=== PATIENT | male | born 1945 | race Caucasian/White ===

== ENCOUNTER 2016-11-06 12:08 | Emergency (ER) | payer MEDICARE, OTHER ==
[~2016-11-06] VITALS: Ht 171.4 cm; Wt 65.5 kg
[~2016-11-06 12:08] MED LIST: AMLO5TAB96 PO; BUSP10; ENAL20TA PO; FERR324T4 PO; GLIP10 PO; METO25 PO; TERA5CAP3 PO
[2016-11-06 12:30] VITALS: BP 143/82; PULSE 98; RESP 16; TEMP 98.8; O2SAT 98
[2016-11-06] MEDS ORDERED: FERR325T PO (13:50)
[2016-11-06] MEDS ORDERED: GLIP10TA6 PO (13:50)
[2016-11-06] MEDS ORDERED: ENAL20TA PO (13:50)
[2016-11-06] MEDS ORDERED: TERA5CAP3 PO (13:50)
[2016-11-06] MEDS ORDERED: METO25TA3 PO (13:50)
[2016-11-06] MEDS ORDERED: AMLO10 PO (13:50)
[2016-11-06] MEDS ORDERED: BUSP10TA PO (13:50)
[2016-11-06] MEDS ORDERED: HYDR-3533 PO ×2 (14:23→14:29)
[2016-11-06] MEDS ORDERED: CLIN1CAP6 PO (14:23)
--- NOTE | 2016-11-06 14:29 | PD ---
HPI Chief Complaint: Oral / Dental Pain or Problem Time Seen by Provider: 14:26 Travel History International Travel<30 days: No Contact w/Intl Traveler<30days: No Traveled to known affect area: No History of Present Illness HPI 71-year-old male presents to the emergency room for evaluation of right upper dental pain and swelling for the past week. States he has had problems with his right upper teeth ever since he broke off 2 of them biting into a pork chop. Patient states symptoms started at the same time. Began draining spontaneously, leaving a nasty taste in his mouth. He has been taking ibuprofen [id number] without significant relief in symptoms. He denies fever, chills, nausea, and vomiting. PFSH Past Medical History Arthritis: Yes Autoimmune Disease: No Blood Disorders: No Anxiety: Yes Depression: Yes Heart Rhythm Problems: No Cancer: No Cardiovascular Problems: Yes High Cholesterol: Yes Chemotherapy: No Chest Pain: No Congestive Heart Failure: No Cerebrovascular Accident: No Diabetes: Yes Patient Takes Glucophage: No Diminished Hearing: No Endocrine: Yes Gastrointestinal Disorders: Yes GERD: Yes Glaucoma: No Genitourinary: Yes Hepatitis: Yes (C) Hiatal Hernia: No Hypertension: Yes Immune Disorder: No Kidney Stones: Yes Musculoskeletal: Yes Neurologic: Yes Psychiatric: Yes Reproductive: No Respiratory: No Immunizations Current: Yes Migraines: No Radiation Therapy: No Renal Failure: No Seizures: No Thyroid Disease: No Ulcer: No Influenza Vaccination: No ?: Not Past Surgical History Abdominal Surgery: Yes Cardiac Surgery: No Ear Surgery: No Endocrine Surgery: No Eye Surgery: No Genitourinary Surgery: No Gynecologic Surgery: No Oral Surgery: No Pacemaker: No Thoracic Surgery: No Other Surgery: Yes Social History Alcohol Use: Yes (WINE DAILY) Tobacco Use: No (QUIT 10/26) Substance Use: No Allergies-Medications (Allergen,Severity, Reaction): Coded Allergies: Benadryl (Verified Allergy, Intermediate, Rash, 11/06/16) Hydroxyzine (Verified Allergy, Intermediate, Rash, 11/06/16) Reported Meds & Prescriptions Reported Meds & Active Scripts Active Lortab (Hydrocodone-Acetaminophen) 5-325 Mg Tab 1 Tab PO Q6H PRN Clindamycin (Clindamycin HCl) 300 Mg Cap 300 Mg PO Q6H 10 Days Reported Ferrous Sulfate 325 Mg Tab 325 Mg PO BID Buspirone (Buspirone HCl) 10 Mg Tab 10 Mg PO BID Metoprolol Tartrate 25 Mg Tab 25 Mg PO BID Terazosin (Terazosin HCl) 5 Mg Cap 5 Mg PO HS Glipizide 10 Mg Tab 10 Mg PO BIDAC Take 30 minutes before a meal Enalapril (Enalapril Maleate) 20 Mg Tab 20 Mg PO BID Norvasc (Amlodipine Besylate) 10 Mg Tab 10 Mg PO HS Review of Systems Except as stated in HPI: all other systems reviewed are Neg Physical Exam Narrative GENERAL: Well-nourished, well-developed male in no acute distress. Afebrile. Ambulatory. SKIN: Warm and dry. HEAD: Normocephalic. EYES: No scleral icterus. No injection or drainage. NECK: Supple, trachea midline. No JVD or lymphadenopathy. DENTAL: Poor dentition overall. Tooth #6 and 7 are erythematous at the base with obvious abscess draining large amounts of purulent, foul-smelling discharge. No malocclusion. Data Data Last Documented VS Vital Signs Date Time Temp Pulse Resp B/P Pulse Ox O2 Delivery O2 Flow Rate FiO2 11/06/16 15:08 18 11/06/16 12:30 98.8 98 143/82 98 Orders Clindamycin Inj (Cleocin Inj) (11/06/16 14:30) Acetamin-Hydrocod 325-5 Mg ([place] 5-325 (11/06/16 14:30) MDM Medical Decision Making Medical Screen Exam Complete: Yes Emergency Medical Condition: Yes Medical Record Reviewed: Yes Differential Diagnosis Dental abscess versus dentalgia versus dental caries Narrative Course 71 male presents to the emergency room for evaluation of draining dental abscess with right facial edema that has been present for the past week. Patient denies fever, chills, nausea, and vomiting. States he has had issues with these teeth for many years after he broke them off eating a pork chop. Physical exam reveals mild erythema and large amount of purulent, foul-smelling drainage from tooth #6 and 7. There is mild right-sided facial edema but no evidence of Emeka's. Patient given 600 IM clindamycin and Lortab while in the emergency room. Discharged with prescriptions for the same. Told to follow-up with dentist or return for worsening symptoms. He understands and agrees to this plan Diagnosis Primary Impression: Dental abscess Referrals: Dentist Patient Instructions: Dental Abscess (ED), General Instructions Additional Instructions: Rest and drink plenty of fluids. Clindamycin as directed, until gone. Lortab as directed, as needed for pain. Follow-up with a dentist. Return to the emergency room for worsening symptoms. Med/Other Pt SpecificInfo: Prescription(s) given Scripts Hydrocodone-Acetaminophen (Lortab)5-325 Mg Tab1 Tab PO Q6H PRN (PAIN) #7 TAB Ref 0 Prov:Ary Lee MD 11/06/16 Clindamycin 300 Mg [id number] Mg PO Q6H 10 Days Ref 0 Prov:Ary Lee MD 11/06/16 Disposition: 01 DISCHARGE HOME Condition: Stable Liliane Dodson Nov 06, 2016 14:29
[2016-11-06] MEDS ORDERED: ACETAMINOPHEN/HYDROcodone 325 MG/5 MG TAB PO ONE (14:30)
[2016-11-06] MEDS ORDERED: CLINDAMYCIN PHOS 600 MG/4 ML VIAL IM ONE (14:30)
[2016-11-06 15:08] VITALS: RESP 18
== END 2016-11-06 15:10 | disposition home or self-care (01) ==
LOC: PHED 12:08 → PHEFT 15:10
DX: K04.7 Periapical abscess without sinus (principal); E78.00 Pure hypercholesterolemia, unspecified; E11.9 Type 2 diabetes mellitus without complications; I10 Essential (primary) hypertension; Z87.442 Personal history of urinary calculi
CPT/HCPCS: 96372

== ENCOUNTER → 2016-11-15 | Outpatient (CLI) | payer MEDICARE, OTHER ==
[~2016-11-15] MED LIST changes: +AMLO10 PO; -AMLO5TAB96 PO; -BUSP10; +BUSP10TA PO; +CLIN1CAP6 PO; -FERR324T4 PO; +FERR325T PO; -GLIP10 PO; +GLIP10TA6 PO; +HYDR-3533 PO; -METO25 PO; +METO25TA3 PO
[2016-11-15 15:53] LABS: AUTOMATED NEUTROPHIL # 3.7 TH/MM3 (1.8-7.7); BASOPHIL # 0.1 TH/MM3 (0-0.2); BASOPHIL % 1.3 % (0.0-2.0); EOSINOPHIL # 0.3 TH/MM3 (0-0.4); EOSINOPHIL % 3.7 % (0.0-4.0); HEMATOCRIT 42.8 % (39.0-51.0); HEMO FLAGS DIFF FINAL; LYMPH % 32.1 % (9.0-44.0); LYMPHOCYTE # 2.4 TH/MM3 (1.0-4.8); MEAN CELL VOLUME 96.4 FL (80.0-100.0); MEAN CORPUSCULAR HEMOGLOBIN 32.9 PG (27.0-34.0); MEAN CORPUSCULAR HGB CONC 34.1 % (32.0-36.0); MONO % 13.4 % (0.0-8.0); NEUT % 49.5 % (16.0-70.0); PLATELET COUNT 305 TH/MM3 (150-450); RED BLOOD COUNT 4.44 MIL/MM3 (4.50-5.90); RED CELL DISTRIBUTION WIDTH 12.6 % (11.6-17.2); WHITE BLOOD COUNT 7.4 TH/MM3 (4.0-11.0)
[2016-11-15 16:12] LABS: HEMOGLOBIN A1a 1.5 %; HEMOGLOBIN Ao 82.7 %; HEMOGLOBIN LA1C 2.5 %; HEMOGLOBIN P3 4.1 %
[2016-11-15 16:22] LABS: ANION GAP 4 MEQ/L (5-15); AST (GOT) 23 U/L (15-37); BICARBONATE 28.9 MEQ/L (21.0-32.0); BLOOD UREA NITROGEN 11 MG/DL (7-18); CHLORIDE 104 MEQ/L (98-107); GLOMERULAR FILTRATION RATE 70 ML/MIN (>89); GLUCOSE,FASTING 141 MG/DL (74-99); POTASSIUM 5.6 MEQ/L (3.5-5.1); SODIUM (NA) 137 MEQ/L (136-145)
[2016-11-15 16:27] LABS: ALKALINE PHOSPHATASE 47 U/L (45-117); ALT (GPT) 53 U/L (12-78); HDL CHOLESTEROL 67.5 MG/DL (40.0-60.0); LDL CHOLESTEROL 97 MG/DL (0-99); TOTAL BILIRUBIN ADULT 0.3 MG/DL (0.2-1.0)
== END ==
LOC: PLAB 13:23
PROVIDERS: ATTEND Family Medicine
DX: E11.65 Type 2 diabetes mellitus with hyperglycemia (principal); N40.0 Benign prostatic hyperplasia without lower urinary tract symptoms; I10 Essential (primary) hypertension; D64.9 Anemia, unspecified
CPT/HCPCS: 36415; 80053; 80061; 83036; 85025

== ENCOUNTER → 2017-03-27 | Outpatient (CLI) | payer MEDICARE, OTHER ==
[2017-03-27 13:32] LABS: HEMATOCRIT 47.2 % (39.0-51.0); MEAN CELL VOLUME 97.5 FL (80.0-100.0); MEAN CORPUSCULAR HEMOGLOBIN 32.5 PG (27.0-34.0); MEAN CORPUSCULAR HGB CONC 33.3 % (32.0-36.0); PLATELET COUNT 205 TH/MM3 (150-450); RED BLOOD COUNT 4.84 MIL/MM3 (4.50-5.90); RED CELL DISTRIBUTION WIDTH 12.6 % (11.6-17.2); REVIEW FLAG FINAL; WHITE BLOOD COUNT 6.9 TH/MM3 (4.0-11.0)
[2017-03-27 13:41] LABS: ANION GAP 8 MEQ/L (5-15); AST (GOT) 37 U/L (15-37); BICARBONATE 28.4 MEQ/L (21.0-32.0); BLOOD UREA NITROGEN 11 MG/DL (7-18); CHLORIDE 102 MEQ/L (98-107); GLOMERULAR FILTRATION RATE 77 ML/MIN (>89); GLUCOSE,FASTING 189 MG/DL (74-99); POTASSIUM 6.3 MEQ/L (3.5-5.1); SODIUM (NA) 138 MEQ/L (136-145)
[2017-03-27 13:42] LABS: ALT (GPT) 65 U/L (12-78)
[2017-03-27 13:44] LABS: ALKALINE PHOSPHATASE 59 U/L (45-117); TOTAL BILIRUBIN ADULT 0.3 MG/DL (0.2-1.0)
[2017-03-27 13:46] LABS: HEMOGLOBIN A1a 1.2 %; HEMOGLOBIN A1b 2.1 %; HEMOGLOBIN Ao 82.5 %; HEMOGLOBIN LA1C 2.9 %
== END ==
LOC: PLAB 11:45
PROVIDERS: ATTEND Family Medicine
DX: E78.2 Mixed hyperlipidemia (principal); E11.65 Type 2 diabetes mellitus with hyperglycemia; K04.7 Periapical abscess without sinus
CPT/HCPCS: 36415; 80053; 83036; 85027; 86803

== ENCOUNTER → 2017-04-11 | Outpatient (CLI) | payer MEDICARE, OTHER ==
--- NOTE | 2017-04-11 13:25 | RADRPT ---
EXAM DATE/TIME: 04/11/2017 00:00 COMPARISON: No previous studies available for comparison. INDICATIONS : Right lung mass. FINDINGS: I have been asked to perform right percutaneous lung biopsy of a 1.2 cm spiculated mass in the right upper lobe most likely carcinoma of lung. This mass is very difficult to access percutaneously becau se of the depth of the lesion and its location, hidden behind major vascular structures, rib and clav icle. The appearance of this is very suspicious for carcinoma would ask hat one of the [employer] att empt to reach this with bronchoscopic biopsy. This patient may be an excellent candidate for the [place] an guidance system. If bronchoscopic biopsy is unsuccessful then options left are attempted percutaneous biopsy and surgi thom excision. PET would suggest positive mediastinal adenopathy. Thank you for this consultation. Juan Ovalles MD FACR on April 11, 2017 at 13:18 Board Certified Radiologist. This report was verified electronically.
== END ==
LOC: HRAD 10:39
PROVIDERS: ATTEND Family Medicine
DX: R91.8 Other nonspecific abnormal finding of lung field (principal)

== ENCOUNTER → 2017-04-30 | Outpatient (CLI) | payer MEDICARE, OTHER ==
[2017-04-30 16:30] LABS: ANION GAP 8 MEQ/L (5-15); AST (GOT) 41 U/L (15-37); BICARBONATE 30.9 MEQ/L (21.0-32.0); BLOOD UREA NITROGEN 16 MG/DL (7-18); CHLORIDE 100 MEQ/L (98-107); GLOMERULAR FILTRATION RATE 78 ML/MIN (>89); POTASSIUM 3.4 MEQ/L (3.5-5.1); SODIUM (NA) 139 MEQ/L (136-145)
[2017-04-30 16:39] LABS: ALKALINE PHOSPHATASE 77 U/L (45-117); ALT (GPT) 93 U/L (12-78); TOTAL BILIRUBIN ADULT 0.3 MG/DL (0.2-1.0)
== END ==
LOC: PLAB 12:38
PROVIDERS: ATTEND Family Medicine
DX: E87.5 Hyperkalemia (principal); R94.5 Abnormal results of liver function studies
CPT/HCPCS: 36415; 80053; 86803

== ENCOUNTER → 2017-05-18 | Outpatient (CLI) | payer MEDICARE, OTHER ==
[2017-05-18 14:02] LABS: ANION GAP 9 MEQ/L (5-15); AST (GOT) 35 U/L (15-37); BICARBONATE 27.5 MEQ/L (21.0-32.0); BLOOD UREA NITROGEN 10 MG/DL (7-18); CHLORIDE 102 MEQ/L (98-107); GLOMERULAR FILTRATION RATE 82 ML/MIN (>89); POTASSIUM 4.2 MEQ/L (3.5-5.1); SODIUM (NA) 138 MEQ/L (136-145)
[2017-05-18 14:05] LABS: ALKALINE PHOSPHATASE 46 U/L (45-117); ALT (GPT) 61 U/L (12-78); TOTAL BILIRUBIN ADULT 0.4 MG/DL (0.2-1.0)
== END ==
LOC: PLAB 11:44
PROVIDERS: ATTEND Family Medicine
DX: R78.9 Finding of unspecified substance, not normally found in blood (principal)
CPT/HCPCS: 36415; 80053

== ENCOUNTER 2017-06-24 12:19 | Inpatient (IN) | payer MEDICARE, MEDICAID ==
[2017-06-24] VITALS (21 sets, daily range): BP systolic 95–194; BP diastolic 67–100; PULSE 90–160; RESP 22–40; TEMP 97.9–99.3; O2SAT 94–100
[~2017-06-24] VITALS: Ht 170.2 cm; Wt 88.6 kg
[2017-06-24] MEDS ORDERED: RESP: ALBUTEROL 2.5 MG/IPRATROPIUM 0.5 MG NEB (SCH) NEB ONE ×2 (12:30→13:00)
[2017-06-24] MEDS ORDERED: SODIUM CHLORIDE 0.9% FLUSH 10 ML FLUSH IVF PRN (12:30)
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
[2017-06-24 12:46] LABS: BLOOD GAS VENOUS HCO3 25 mmol/L (22-26); BLOOD GAS VENOUS O2 CONTENT 14.4 Vol % (9.0-17.0); BLOOD GAS VENOUS O2 HGB SAT 68 % (70-76); BLOOD GAS VENOUS PCO2 45 mmHg (44-48); BLOOD GAS VENOUS PO2 42 mmHg (35-40); BLOOD GAS VENOUS pH 7.36 (7.360-7.400); CRITICAL VALUE NO; DRAW SITE RT BRACHIAL; LITER FLOW 3 L/M; OXYGEN DEVICE NASAL CANNULA; STAT YES; TEMP CORR TO 98.6
[2017-06-24 12:54] LABS: AUTOMATED NEUTROPHIL # 7.5 TH/MM3 (1.8-7.7); BASOPHIL % 0.5 % (0.0-2.0); EOSINOPHIL # 0.1 TH/MM3 (0-0.4); EOSINOPHIL % 1.5 % (0.0-4.0); HEMATOCRIT 45.1 % (39.0-51.0); HEMO FLAGS DIFF FINAL; LYMPH % 9.4 % (9.0-44.0); LYMPHOCYTE # 0.9 TH/MM3 (1.0-4.8); MEAN CELL VOLUME 97.7 FL (80.0-100.0); MEAN CORPUSCULAR HEMOGLOBIN 32.2 PG (27.0-34.0); MEAN CORPUSCULAR HGB CONC 32.9 % (32.0-36.0); MONO % 6.4 % (0.0-8.0); NEUT % 82.2 % (16.0-70.0); PLATELET COUNT 282 TH/MM3 (150-450); RED BLOOD COUNT 4.62 MIL/MM3 (4.50-5.90); RED CELL DISTRIBUTION WIDTH 13.1 % (11.6-17.2); WHITE BLOOD COUNT 9.1 TH/MM3 (4.0-11.0)
[2017-06-24] MEDS ORDERED: predniSONE 20 MG TAB PO ONE (13:00)
--- NOTE | 2017-06-24 13:01 | RADRPT ---
EXAM DATE/TIME: 06/24/2017 12:34 [facility] COMPARISON: No previous studies available for comparison. INDICATIONS : Shortness of breath for 2 weeks. MEDICAL HISTORY : Hypertension. Diabetes mellitus type II. SURGICAL HISTORY : None. ENCOUNTER: Initial ACUITY: 2 weeks PAIN SCORE: 0/10 LOCATION: Bilateral chest FINDINGS: A single view of the chest demonstrates the lungs to be symmetrically hyper aerated without evidence of mass, infiltrate or effusion. The cardiomediastinal contours are unremarkable. Osseous structure s are intact. CONCLUSION: 1. COPD. 2. No evidence of acute air space disease or congestion. Hiram Eric MD on June 24, 2017 at 12:59 Board Certified Radiologist. This report was verified electronically.
[2017-06-24] MEDS ORDERED: PANT40TA3 PO (13:06)
[2017-06-24] MEDS ORDERED: METF1000 PO (13:06)
[2017-06-24 13:08] LABS: CHLORIDE 95 MEQ/L (98-107); POTASSIUM 4.1 MEQ/L (3.5-5.1); SODIUM (NA) 132 MEQ/L (136-145)
[2017-06-24 13:12] LABS: ANION GAP 13 MEQ/L (5-15); BICARBONATE 24.4 MEQ/L (21.0-32.0); BLOOD UREA NITROGEN 15 MG/DL (7-18); MAGNESIUM 1.6 MG/DL (1.5-2.5)
[2017-06-24 13:15] LABS: ALT (GPT) 60 U/L (12-78); AST (GOT) 31 U/L (15-37); GLOMERULAR FILTRATION RATE 74 ML/MIN (>89)
[2017-06-24 13:16] LABS: TOTAL BILIRUBIN ADULT 0.5 MG/DL (0.2-1.0)
[2017-06-24 13:17] LABS: ALKALINE PHOSPHATASE 45 U/L (45-117); CREATINE KINASE 103 U/L (39-308)
[2017-06-24 13:24] LABS: APTT (PATIENT) 26.4 SEC (24.3-30.1)
[2017-06-24 13:30] LABS: CKMB 3.7 NG/ML (0.5-3.6)
[2017-06-24] MEDS ORDERED: LORazepam 2 MG/ML VIAL IV PUSH ONE ×2 (13:45→15:00)
[2017-06-24] MEDS ORDERED: IOHEXOL 350 MG/ML 10 ML VIAL (for RAD DIAG) IVCONTRAST ONE (13:58)
--- NOTE | 2017-06-24 14:11 | RADRPT ---
EXAM DATE/TIME: 06/24/2017 13:46 [facility] COMPARISON: No previous studies available for comparison. INDICATIONS : Shortness of breath. IV CONTRAST: 74 cc Omnipaque 350 (iohexol) IV RADIATION DOSE: 9.06 CTDIvol (mGy) MEDICAL HISTORY : Hypertension. Diabetes mellitus type 2. Hepatitis C.Renal stones SURGICAL HISTORY : None. ENCOUNTER: Initial ACUITY: 1 day PAIN SCALE: 6/10 LOCATION: Bilateral chest TECHNIQUE: Volumetric scanning of the chest was performed using a pulmonary embolism protocol MIP images were re constructed. Using automated exposure control and adjustment of the mA and/or kV according to patien t size, radiation dose was kept as low as reasonably achievable to obtain optimal diagnostic quality images. DICOM format image data is available electronically for review and comparison. Follow-up recommendations for detected pulmonary nodules are based at a minimum on nodule size and pa tient risk factors according to Fleischner Society Guidelines. FINDINGS: PULMONARY ARTERIES: No filling defects are seen in the pulmonary arteries through the segmental level. LUNGS: A 1.8 cm spiculated mass is identified immediately within the right upper lobe. Changes of chronic ob structive coronary disease are noted. PLEURAE: There is no pleural thickening or pleural effusion. MEDIASTINUM: A prominent precarinal lymph node measuring 1.7 cm is identified. MUSCULOSKELETAL: Within normal limits for patient age. MISCELLANEOUS: A 2.6 cm hypodense mass is identified in the left adrenal gland. CONCLUSION: 1. No evidence of pulmonary embolism or acute cardiopulmonary process. 2. 1.8 cm spiculated mass right upper lobe characteristic for malignancy. 3. 1.7 cm precarinal lymph node which may represent malignant lymphadenopathy. 4. 2.6 cm left adrenal gland mass Hiram Eric MD on June 24, 2017 at 14:03 Board Certified Radiologist. This report was verified electronically.
[2017-06-24] MEDS ORDERED: DOXY100C PO (14:23)
[2017-06-24] MEDS ORDERED: DILTIAZEM HCL 25 MG/5 ML VIAL IV ONE (14:45)
[2017-06-24] MEDS ORDERED: METOPROLOL TARTRATE 5 MG/5 ML VIAL IV PUSH ONE (15:30)
[2017-06-24] MEDS ORDERED: PRED20 PO (16:33)
[2017-06-24] MEDS ORDERED: MAGNESIUM SULFATE INJ 4 GM in SODIUM CHLORIDE 0.9% INJ 92 ML IV PRN (17:30)
[2017-06-24] MEDS ORDERED: LACTULOSE SYRUP 20 GM/30 ML CUP PO PRN (17:30)
[2017-06-24] MEDS ORDERED: CHLORHEXIDINE GLUCONATE 2 % 1 PACK (2 CLOTHS) TOP PRN (17:30)
[2017-06-24] MEDS ORDERED: MAGNESIUM OXIDE 400 MG TAB PO PRN (17:30)
[2017-06-24] MEDS ORDERED: GLUCAGON 1 MG/ML VIAL OTHER PRN (17:30)
[2017-06-24] MEDS ORDERED: POTASSIUM PHOSPHATE MONOBASIC 500 MG TAB PO/TUBE PRN (17:30)
[2017-06-24] MEDS ORDERED: POTASSIUM CHLORIDE 25 MEQ EFFERVESCENT TAB PO PRN (17:30)
[2017-06-24] MEDS ORDERED: DEXTROSE 50% IN WATER 50 ML VIAL(D50) IV PRN (17:30)
[2017-06-24] MEDS ORDERED: POTASSIUM CHLOR 40 MEQ PREMIX 100 ML IV PRN ×2 (17:30→18:00)
[2017-06-24] MEDS ORDERED: SODIUM CHLORIDE 0.9% FLUSH 10 ML FLUSH IV FLUSH PRN (17:30)
[2017-06-24] MEDS ORDERED: MISCELLANEOUS NURSING INFORMATION XX SCH (17:30)
[2017-06-24] MEDS ORDERED: MAGNESIUM SULFATE INJ 2 GM in SODIUM CHLORIDE 0.9% INJ 96 ML IV PRN (17:30)
[2017-06-24] MEDS ORDERED: SODIUM PHOSPHATE INJ 30 MMOL in SODIUM CHLOR 0.9% 250 ML INJ 240 ML IV PRN (17:30)
[2017-06-24] MEDS ORDERED: POTASSIUM CHLOR 20 MEQ PREMIX 100 ML IV PRN ×2 (17:30→18:00)
[2017-06-24] MEDS ORDERED: POTASSIUM PHOSPHATE INJ 30 MMOL in SODIUM CHLOR 0.9% 250 ML INJ 250 ML IV PRN (17:30)
[2017-06-24] MEDS ORDERED: POTASSIUM PHOSPHATE MONOBASIC 500 MG TAB PO PRN (18:00)
[2017-06-24] MEDS ORDERED: SENNOSIDES 8.6 MG TAB PO PRN (18:00)
[2017-06-24] MEDS ORDERED: MAGNESIUM HYDROXIDE SUSP 30 ML CUP PO PRN (18:00)
[2017-06-24] MEDS ORDERED: BISACODYL 10 MG SUPP RECTAL PRN (18:00)
[2017-06-24] MEDS ORDERED: ACETAMINOPHEN 325 MG TAB PO PRN (18:00)
[2017-06-24] MEDS ORDERED: SODIUM CHLOR 0.9% 1000 ML INJ 1,000 ML IV SCH (18:00)
--- NOTE | 2017-06-24 18:14 | HHI.HP ---
HPI Service Critical Care Medicine Primary Care Physician Falguni Vera MD Admission Diagnosis COPD exacerbation. Diagnosis: Travel History International Travel<30 Days: No Contact w/Intl Traveler <30 Da: No Traveled to Known Affected Are: No History of Present Illness This is a 72-year-old male that presented to the ED with dyspnea and a cough .The cough was described as whitish sputum, the patient reports no fevers no history of recent infections . The patient is noted to have a right upper lobe lobe lung mass that was to be biopsied or 04/11/17 via IR, but due to the location biopsy retrieval was unsuccessful. The patient was subsequently scheduled for surgical biopsy/right upper lobe lung mass removal which is scheduled in the near future. The patient reports that his symptoms had began approximately 24 hours ago . Denies any fever denies any sputum production denies any abdominal pain or nausea vomiting. Denies any chest pain. The patient presented in sinus tachycardia with a heart rate of 135, and tachypnea initially respiratory rate in the 50s the patient received DuoNeb treatments in the ED, and the heart rate became subsequently more elevated. The patient then received Cardizem, and metoprolol current heart rate upon presentation was 121. Imaging studies performed CTA pulmonary negative with noted right upper lobe lung mass, as well as a left adrenal mass, and suspicious precarinal lymphadenopathy. The patient's respiratory rate trends in the mid 30s on BiPAP ,the patient states he is comfortable and breathing easier now post treatment. Critical care medicine is consulted for management. History PFSH Past Medical History Arthritis: Yes Autoimmune Disease: No Blood Disorders: No Anxiety: Yes Depression: Yes Heart Rhythm Problems: No Cancer: No Cardiovascular Problems: Yes High Cholesterol: Yes Chemotherapy: No Chest Pain: No Congestive Heart Failure: No Cerebrovascular Accident: No Diabetes: Yes Diminished Hearing: No Endocrine: Yes Gastrointestinal Disorders: Yes GERD: Yes Glaucoma: No Genitourinary: Yes Hepatitis: Yes (C) Hiatal Hernia: No Hypertension: Yes Immune Disorder: No Kidney Stones: Yes Musculoskeletal: Yes Neurologic: Yes Psychiatric: Yes Reproductive: No Respiratory: No Immunizations Current: Yes Migraines: No Radiation Therapy: No Renal Failure: No Seizures: No Thyroid Disease: No Ulcer: No Past Surgical History Abdominal Surgery: Yes Cardiac Surgery: No Ear Surgery: No Endocrine Surgery: No Eye Surgery: No Genitourinary Surgery: No Gynecologic Surgery: No Oral Surgery: No Pacemaker: No Thoracic Surgery: No Other Surgery: Yes Social History Alcohol Use: Yes (WINE DAILY) Tobacco Use: No (QUIT 10/26) Substance Use: No Allergies-Medications Allergies-Medications (Allergen,Severity, Reaction): Coded Allergies: diphenhydramine (Unverified Allergy, Intermediate, Rash, 05/29/17) hydroxyzine (Unverified Allergy, Intermediate, Rash, 05/29/17) Reported Meds & Prescriptions Reported Meds & Active Scripts Active Prednisone 20 Mg Tab 60 Mg PO DAILY 5 Days Reported Pantoprazole (Pantoprazole Sodium) 40 Mg Tab 40 Mg PO DAILY Metformin (Metformin HCl) 1,000 Mg Tab 1,000 Mg PO BIDPC With meals Buspirone (Buspirone HCl) 10 Mg Tab 10 Mg PO BID Metoprolol Tartrate 25 Mg Tab 25 Mg PO BID Terazosin (Terazosin HCl) 5 Mg Cap 5 Mg PO HS Glipizide 10 Mg Tab 10 Mg PO BIDAC Take 30 minutes before a meal Enalapril (Enalapril Maleate) 20 Mg Tab 20 Mg PO BID Norvasc (Amlodipine Besylate) 10 Mg Tab 10 Mg PO HS ROS Review of Systems Except as stated in HPI: all other systems reviewed are Neg Past Family Social History Allergies: Coded Allergies: diphenhydramine (Unverified Allergy, Intermediate, Rash, 06/24/17) hydroxyzine (Unverified Allergy, Intermediate, Rash, 06/24/17) Past Medical History Unable to obtain Past Surgical History H/O cardiac stent Reported Medications see MAR Active Ordered Medications see MAR Family History Social History denies illicit drug use Physical Exam Vital Signs Vital Signs Date Time Temp Pulse Resp B/P (MAP) Pulse Ox O2 Delivery O2 Flow Rate FiO2 06/24/17 16:39 99 35 06/24/17 16:19 147 95/70 (78) 99 06/24/17 15:00 156 40 145/82 (103) BiPAP 35 06/24/17 14:20 100 35 06/24/17 14:00 40 100 BiPAP 35 06/24/17 14:00 100 35 06/24/17 13:35 160 32 194/100 (131) 98 06/24/17 13:25 97.9 133 32 194/100 (131) 99 Nasal Cannula 4.00 06/24/17 12:37 97 Nasal Cannula 2.00 06/24/17 12:30 32 94 Nasal Cannula 4.00 06/24/17 12:25 94 Room Air 06/24/17 12:25 94 Nasal Cannula 4.00 06/24/17 12:20 97.9 139 32 95 Physical Exam BP 148/93 Pulse 121 O2 saturation 95% GENERAL: Well-developed well-nourished male, barrel chested currently on BiPAP, able to speak with complete sentences in no respiratory distress SKIN: Warm and dry. HEAD: Atraumatic. Normocephalic. EYES: Pupils equal and round. No scleral icterus. No injection or drainage. ENT: No nasal bleeding or discharge. Mucous membranes pink and moist. BiPAP 15/ 5 with an FiO2 0.35 NECK: Trachea midline. No JVD. CARDIOVASCULAR: Normal rate, regular rhythm. RESPIRATORY: No accessory muscle use. Clear to auscultation. Breath sounds equal bilaterally. Tachypnea respiratory rate mid 30s GASTROINTESTINAL: Abdomen soft, non-tender, nondistended. No guarding. Normoactive bowel sounds MUSCULOSKELETAL: Extremities without clubbing, cyanosis, or edema. No obvious deformities. NEUROLOGICAL: Awake and alert. RASS 0. No gross focal/sensory deficits. Cranial nerves II-XII, grossly intact .Follows commands in all 4 extremities. Laboratory Laboratory Tests Test 06/24/17 12:35 White Blood Count 9.1 Red Blood Count 4.62 Hemoglobin 14.8 Hematocrit 45.1 Mean Corpuscular Volume 97.7 Mean Corpuscular Hemoglobin 32.2 Mean Corpuscular Hemoglobin Concent 32.9 Red Cell Distribution Width 13.1 Platelet Count 282 Mean Platelet Volume 8.3 Neutrophils (%) (Auto) 82.2 Lymphocytes (%) (Auto) 9.4 Monocytes (%) (Auto) 6.4 Eosinophils (%) (Auto) 1.5 Basophils (%) (Auto) 0.5 Neutrophils # (Auto) 7.5 Lymphocytes # (Auto) 0.9 Monocytes # (Auto) 0.6 Eosinophils # (Auto) 0.1 Basophils # (Auto) 0.0 CBC Comment DIFF FINAL Differential Comment Prothrombin Time 11.0 Prothromb Time International Ratio 1.0 Activated Partial Thromboplast Time 26.4 Blood Gas Puncture Site RT BRACHIAL Blood Gas Patient Temperature 98.6 Venous Blood pH 7.36 Venous Blood Partial Pressure CO2 45 Venous Blood Partial Pressure O2 42 Venous Blood HCO3 25 Venous Blood Oxygen Saturation 68 Venous Blood Oxygen Content 14.4 Venous Blood Base Excess 0.0 Oxygen Delivery Device NASAL CANNULA Blood Gas Liter Flow 3 Blood Urea Nitrogen 15 Creatinine 1.00 Random Glucose 264 Total Protein 8.4 Albumin 4.2 Calcium Level 8.9 Magnesium Level 1.6 Alkaline Phosphatase 45 Aspartate Amino Transf (AST/SGOT) 31 Alanine Aminotransferase (ALT/SGPT) 60 Total Bilirubin 0.5 Sodium Level 132 Potassium Level 4.1 Chloride Level 95 Carbon Dioxide Level 24.4 Anion Gap 13 Estimat Glomerular Filtration Rate 74 Total Creatine Kinase 103 Creatine Kinase MB 3.7 Troponin I 0.05 Result Diagram: 06/24/17 1235 06/24/17 1235 Imaging Last Impressions Chest X-Ray 06/24/17 1229 Signed Impressions: Service Date/Time: Saturday, June 24, 2017 12:34 - CONCLUSION: 1. COPD. 2. No evidence of acute air space disease or congestion. Hiram Eric MD CT Angiography 06/24/179 Signed Impressions: Service Date/Time: Saturday, June 24, 2017 13:46 - CONCLUSION: 1. No evidence of pulmonary embolism or acute cardiopulmonary process. 2. 1.8 cm spiculated mass right upper lobe characteristic for malignancy. 3. 1.7 cm precarinal lymph node which may represent malignant lymphadenopathy. 4. 2.6 cm left adrenal gland mass Hiram Eric MD Septic Shock Reassessment Heart: Other (sinus tachycardia) Lungs: Clear Skin: Warm Peripheral Pulses: Bounding Right Radial Bounding Left Radial Bounding Right Dorsalis Pedis Bounding Left Dorsalis Pedis Capillary Refill: Brisk Caprini VTE Risk Assessment Caprini VTE Risk Assessment: Mod/High Risk (score >= 2) Caprini Risk Assessment Model Point Value = 1 Point Value = 2 Point Value = 3 Point Value = 5 Age 41-60 Minor surgery BMI > 25 kg/m2 Swollen legs Varicose veins or History of unexplained or recurrent spontaneous Oral contraceptives or hormone replacement Sepsis (< 1 month) Serious lung disease, including pneumonia (< 1 month) Abnormal pulmonary function Acute myocardial infarction Congestive heart failure (< 1 month) History of inflammatory bowel disease Medical patient at bed rest Age 61-74 Arthroscopic surgery Major open surgery (> 45 min) Laparoscopic surgery (> 45 min) Malignancy Confined to bed (> 72 hours) Immobilizing plaster cast Central venous access Age >= 75 History of VTE Family history of VTE Factor V Leiden Prothrombin [id number] Lupus anticoagulant Anticardiolipin antibodies Elevated serum homocysteine Heparin-induced thrombocytopenia Other congenital or acquired thrombophilia Stroke (< 1 month) Elective arthroplasty Hip, pelvis, or leg fracture Acute spinal cord injury (< 1 month) Prophylaxis Regimen Total Risk Factor Score Risk Level Prophylaxis Regimen 0-1 Low Early ambulation 2 Moderate Order ONE of the following: *Sequential Compression Device (SCD) *Heparin 5000 units SQ BID 3-4 Higher Order ONE of the following medications: *Heparin 5000 units SQ TID *Enoxaparin/Lovenox 40 mg SQ daily (WT < 150 kg, CrCl > 30 mL/min) *Enoxaparin/Lovenox 30 mg SQ daily (WT < 150 kg, CrCl > 10-29 mL/min) *Enoxaparin/Lovenox 30 mg SQ BID (WT < 150 kg, CrCl > 30 mL/min) AND/OR *Sequential Compression Device (SCD) 5 or more Highest Order ONE of the following medications: *Heparin 5000 units SQ TID (Preferred with Epidurals) *Enoxaparin/Lovenox 40 mg SQ daily (WT < 150 kg, CrCl > 30 mL/min) *Enoxaparin/Lovenox 30 mg SQ daily (WT < 150 kg, CrCl > 10-29 mL/min) *Enoxaparin/Lovenox 30 mg SQ BID (WT < 150 kg, CrCl > 30 mL/min) AND *Sequential Compression Device (SCD) Assessment and Plan Assessment and Plan This 72-year-old male with tobacco abuse and noted lung mass suspicious for lung malignancy, is living with tachypnea, dyspnea at increased risk for possible endotracheal intubation. Neurologic: Anxiety disorder Alcohol use Neurochecks per ICU protocol Patient describes 2 glasses of wine/or 2 glasses of beer daily Monitor for signs of alcohol withdrawal Ativan 1 mg every 3 hours when necessary for agitation Continue BuSpar 10 mg twice a day (home medication) Respiratory: COPD exacerbation Tobacco abuse Right upper lobe lung mass 1.8 cm Lymphadenopathy-1.7 precarinal lymph node Maintain O2 sat greater than 92% Continue BiPAP 15/5 with an FiO2 of 0.35% Repeat ABG Methylprednisolone 40 mg every 12 hours Duo nebs every 6 hours scheduled, every 2 hours when necessary Cardiovascular: Hypertension Sinus tachycardia Patient received Cardizem and metoprolol in ED 06/24 EKG-sinus tachycardia, possible anterior OR Follow-up troponin levels Continue metoprolol 25 mg twice a day, Norvasc 10 mg by mouth at bedtime, enalapril 20 mg twice a day-patient's antihypertensive home medications Renal: Left Adrenal mass 2.6 cm BPH Bladder scan if > 300cc Insert griffin Continue terazosin 5 mg by mouth at bedtime patient's home medication -- Strict I/Os FEN/GI: Hyponatremia GERD IV fluids normal saline 84 cc/hour Obtain nothing by mouth status tonight Zofran for nausea Metoclopramide for nausea Bowel regimen Heme/ID: Hepatitis C Monitor CBC Obtain cultures if clinically indicated, patient currently afebrile WBC count within normal limits Empirically begin Zosyn and azithromycin Endocrine: Diabetes mellitus type 2 Glucose monitoring per ICU protocol-medium dose regimen -- SSI Prophylaxis: GI Prophylaxis Protonix 40/day- patient's home medication DVT Prophylaxis -- SCDs Heparin twice a day Lines: Peripheral IVs 2 providing adequate access at this time Dispo: This patient remains critically ill with one or more organ systems which are or may become a threat to life. I have spent in excess of 30 minutes discontinuously in the care and management of this patient. This time is exclusive of procedures, and includes, but is not limited to, evaluation of the patient, review of the medical record, discussions with family, consultants, nursing staff, or respiratory therapy, and documentation in the medical record. Code Status Full Discussed Condition With Patient ,Dr. Sheth, and ED RN at bedside Radha Cha MD Jun 24, 2017 18:14
[2017-06-24] MEDS: methylPREDNISolone SOD SUCC 40 MG/1 ML VIAL IV PUSH SCH ×2 (18:42→21:07)
[2017-06-24] MEDS: HEPARIN SODIUM - SQ 10,000 UNITS/ML VIAL SQ SCH (18:45)
[2017-06-24] MEDS ORDERED: PIPERACIL-TAZO 3.375 GM PREMIX 50 ML IV SCH (19:00)
[2017-06-24] MEDS ORDERED: METOCLOPRAMIDE HCL 10 MG/2 ML VIAL IV PUSH PRN (21:00)
[2017-06-24] MEDS: ENALAPRIL MALEATE 10 MG TAB PO SCH (21:00)
[2017-06-24] MEDS ORDERED: ONDANSETRON HCL 4 MG/2 ML VIAL IV PUSH PRN (21:00)
[2017-06-24] MEDS: RESP: ALBUTEROL 2.5 MG/IPRATROPIUM 0.5 MG NEB (SCH) INH (21:01)
[2017-06-24] MEDS: busPIRone HCL 10 MG TAB PO SCH (21:06)
[2017-06-24] MEDS: DOCUSATE SODIUM 50 MG/SENNA 8.6 MG TAB PO SCH (21:07)
[2017-06-24] MEDS: METOPROLOL TARTRATE 25 MG TAB PO SCH (21:07)
[2017-06-24] MEDS: TERAZOSIN HCL 5 MG CAP PO SCH (21:07)
[2017-06-24] MEDS: SODIUM CHLORIDE 0.9% FLUSH 10 ML FLUSH IV FLUSH SCH (21:08)
[2017-06-24] MEDS: INSULIN ASPART SUPPLEMENTAL SCALE SQ SCH (21:09)
[2017-06-24] MEDS: AZITHROMYCIN INJ 250 MG in SODIUM CHLOR 0.9% 250 ML INJ 250 ML IV SCH (22:12)
[2017-06-25] VITALS (30 sets, daily range): BP systolic 100–161; BP diastolic 58–95; PULSE 86–120; RESP 13–38; TEMP 97.2–99.7; O2SAT 93–99
[2017-06-25] MEDS: PIPERACIL-TAZO 3.375 GM PREMIX 50 ML IV SCH ×4 (03:14→21:46)
[2017-06-25] MEDS: RESP: ALBUTEROL 2.5 MG/IPRATROPIUM 0.5 MG NEB (SCH) INH ×4 (03:45→21:37)
[2017-06-25] MEDS: CHLORHEXIDINE GLUCONATE 2 % 1 PACK (2 CLOTHS) TOP SCH (04:00)
[2017-06-25] MEDS: RESP: ALBUTEROL 2.5 MG/IPRATROPIUM 0.5 MG NEB (PRN) INH (05:51)
[2017-06-25 06:00] LABS: BLOOD GAS BASE EXCESS -0.5 mmol/L (-2-2); BLOOD GAS CARBOXYHEMOGLOBIN 1.4 % (0-4); BLOOD GAS HCO3 24 mmol/L (22-26); BLOOD GAS METHEMOGLOBIN 0.8 % (0-2); BLOOD GAS O2 HGB SATURATION 94 % (90-100); BLOOD GAS OXYGEN CONTENT 17.5 Vol % (12.0-20.0); BLOOD GAS PCO2 39 mmHG (38-42); BLOOD GAS PO2 79 mmHG (61-120); BLOOD GAS TOTAL HGB 13.2 G/DL (12.0-16.0); CRITICAL VALUE NO; DRAW SITE LT RADIAL; LITER FLOW 3 L/M; NUMBER OF ARTERIAL PUNCTURES 1; OXYGEN DEVICE NASAL CANNULA; STAT NO; TEMP CORR TO 98.6; ULNAR PULSE PRESENT
[2017-06-25 06:05] LABS: POTASSIUM 3.9 MEQ/L (3.5-5.1)
[2017-06-25 06:07] LABS: AUTOMATED NEUTROPHIL # 5.6 TH/MM3 (1.8-7.7); BASOPHIL % 0.4 % (0.0-2.0); EOSINOPHIL % 0.1 % (0.0-4.0); HEMATOCRIT 40.2 % (39.0-51.0); HEMO FLAGS DIFF FINAL; LYMPHOCYTE # 0.5 TH/MM3 (1.0-4.8); MEAN CELL VOLUME 97.7 FL (80.0-100.0); MEAN CORPUSCULAR HEMOGLOBIN 31.9 PG (27.0-34.0); MEAN CORPUSCULAR HGB CONC 32.6 % (32.0-36.0); MONO % 4.1 % (0.0-8.0); NEUT % 87.4 % (16.0-70.0); PLATELET COUNT 252 TH/MM3 (150-450); RED BLOOD COUNT 4.11 MIL/MM3 (4.50-5.90); RED CELL DISTRIBUTION WIDTH 12.4 % (11.6-17.2); WHITE BLOOD COUNT 6.4 TH/MM3 (4.0-11.0)
--- NOTE | 2017-06-25 06:22 | RADRPT ---
EXAM DATE/TIME: 06/25/2017 06:00 [facility] COMPARISON: CHEST SINGLE AP, June 24, 2017, 12:34. INDICATIONS : Shortness of breath; respiratory failure. MEDICAL HISTORY : Chronic obstructive pulmonary disease. Hypertension. Diabetes mellitus type 2. Hepatitis C. Shaun al stones SURGICAL HISTORY : None. ENCOUNTER: Subsequent ACUITY: 2 days PAIN SCORE: 0/10 LOCATION: Bilateral chest FINDINGS: A single view of the chest demonstrates the lungs to be symmetrically aerated without evidence of mas s, infiltrate or effusion. The cardiomediastinal contours are unremarkable. Osseous structures are intact. CONCLUSION: No acute disease. Maximilian Lira MD on June 25, 2017 at 6:17 Board Certified Radiologist. This report was verified electronically.
[2017-06-25] MEDS: HEPARIN SODIUM - SQ 10,000 UNITS/ML VIAL SQ SCH ×2 (06:30→17:26)
[2017-06-25] MEDS: INSULIN ASPART SUPPLEMENTAL SCALE SQ SCH ×4 (06:32→21:47)
[2017-06-25 08:26] LABS: MAGNESIUM 3.1 MG/DL (1.5-2.5)
[2017-06-25] MEDS: ENALAPRIL MALEATE 10 MG TAB PO SCH ×2 (09:00→21:47)
[2017-06-25] MEDS: busPIRone HCL 10 MG TAB PO SCH ×2 (09:05→19:41)
[2017-06-25] MEDS: PANTOPRAZOLE SODIUM 40 MG VIAL IV PUSH SCH (09:05)
[2017-06-25] MEDS: DOCUSATE SODIUM 50 MG/SENNA 8.6 MG TAB PO SCH ×2 (09:05→19:41)
[2017-06-25] MEDS: METOPROLOL TARTRATE 25 MG TAB PO SCH ×2 (09:05→19:41)
[2017-06-25] MEDS: methylPREDNISolone SOD SUCC 40 MG/1 ML VIAL IV PUSH SCH ×2 (09:06→21:48)
[2017-06-25] MEDS: SODIUM CHLORIDE 0.9% FLUSH 10 ML FLUSH IV FLUSH SCH (09:06)
--- NOTE | 2017-06-25 09:23 | HHI.CCPN ---
Subjective Remarks/Hospital Course This is a 72-year-old male that presented to the ED with dyspnea and a cough .The cough was described as whitish sputum, the patient reports no fevers no history of recent infections . The patient is noted to have a right upper lobe lobe lung mass that was to be biopsied or 04/11/17 via IR, but due to the location biopsy retrieval was unsuccessful. The patient was subsequently scheduled for surgical biopsy/right upper lobe lung mass removal which is scheduled in the near future. The patient reports that his symptoms had began approximately 24 hours ago . Denies any fever denies any sputum production denies any abdominal pain or nausea vomiting. Denies any chest pain. The patient presented in sinus tachycardia with a heart rate of 135, and tachypnea initially respiratory rate in the 50s the patient received DuoNeb treatments in the ED, and the heart rate became subsequently more elevated. The patient then received Cardizem, and metoprolol current heart rate upon presentation was 121. Imaging studies performed CTA pulmonary negative with noted right upper lobe lung mass, as well as a left adrenal mass, and suspicious precarinal lymphadenopathy. The patient's respiratory rate trends in the mid 30s on BiPAP ,the patient states he is comfortable and breathing easier now post treatment. Critical care medicine is consulted for management. Subjective: 06/25: No acute events overnight. Patient has been weaned down to O2 via nasal cannula 3 L with O2 saturation 98%. Patient's initial heart rate 150s now down to 110. She continues on metoprolol home antihypertensive medication. The patient's diet has been advanced to regular diet/diabetic diet. The patient is scheduled to have PFTs performed on 06/27 and surgery is scheduled for excision of lung mass at [facility] on 07/02/17. Objective Vital Signs Date Time Temp Pulse Resp B/P (MAP) Pulse Ox O2 Delivery O2 Flow Rate FiO2 06/25/17 06:47 111 06/25/17 06:03 32 153/77 (102) 96 06/25/17 04:00 98.4 06/25/17 03:45 Nasal Cannula 3.00 06/25/17 01:03 35 Intake and Output 06/25/17 06/25/17 06/26/17 08:00 16:00 00:00 Intake Total 1106 ml Output Total 450 ml Balance 656 ml Result Diagram: 06/25/17 0525 06/25/17 0525 Other Results Laboratory Tests Test 06/24/17 12:35 06/25/17 05:48 Blood Gas Puncture Site RT BRACHIAL LT RADIAL Blood Gas Patient Temperature 98.6 98.6 Venous Blood pH 7.36 (7.360-7.400) Venous Blood Partial Pressure CO2 45 mmHg (44-48) Venous Blood Partial Pressure O2 42 mmHg (35-40) Venous Blood HCO3 25 mmol/L (22-26) Venous Blood Oxygen Saturation 68 % (70-76) Venous Blood Oxygen Content 14.4 Vol % (9.0-17.0) Venous Blood Base Excess 0.0 mmol/L (-2-2) Oxygen Delivery Device NASAL CANNULA NASAL CANNULA Blood Gas Liter Flow 3 L/M 3 L/M Blood Gas HCO3 24 mmol/L (22-26) Blood Gas Base Excess -0.5 mmol/L (-2-2) Blood Gas Oxygen Saturation 94 % (90-100) Arterial Blood pH 7.40 (7.380-7.420) Arterial Blood Partial Pressure CO2 39 mmHG (38-42) Arterial Blood Partial Pressure O2 79 mmHG (61-120) Arterial Blood Oxygen Content 17.5 Vol % (12.0-20.0) Arterial Blood Carboxyhemoglobin 1.4 % (0-4) Arterial Blood Methemoglobin 0.8 % (0-2) Blood Gas Hemoglobin 13.2 G/DL (12.0-16.0) Imaging Last Impressions Chest X-Ray 06/24/179 Signed Impressions: Service Date/Time: Saturday, June 24, 2017 12:34 - CONCLUSION: 1. COPD. 2. No evidence of acute air space disease or congestion. Hiram Eric MD CT Angiography 06/24/179 Signed Impressions: Service Date/Time: Saturday, June 24, 2017 13:46 - CONCLUSION: 1. No evidence of pulmonary embolism or acute cardiopulmonary process. 2. 1.8 cm spiculated mass right upper lobe characteristic for malignancy. 3. 1.7 cm precarinal lymph node which may represent malignant lymphadenopathy. 4. 2.6 cm left adrenal gland mass Hiram Eric MD Objective Remarks BP 168/83 Pulse 115 O2 saturation 98% on O2 at 3 L nasal cannula GENERAL: Well-developed well-nourished male, pleasantly conversant, on O2 3 L nasal cannula in no acute respiratory distress SKIN: Warm and dry. HEAD: Atraumatic. Normocephalic. EYES: Pupils equal and round. No scleral icterus. No injection or drainage. ENT: No nasal bleeding or discharge. Mucous membranes pink and moist. Liters nasal cannula NECK: Trachea midline. No JVD. CARDIOVASCULAR: Normal rate, regular rhythm. RESPIRATORY: No accessory muscle use. Clear to auscultation. Breath sounds equal bilaterally. Tachypnea respiratory rate mid 30s GASTROINTESTINAL: Abdomen soft, non-tender, nondistended. No guarding. Normoactive bowel sounds MUSCULOSKELETAL: Extremities without clubbing, cyanosis, or edema. No obvious deformities. NEUROLOGICAL: Awake and alert. RASS 0. No gross focal/sensory deficits. Cranial nerves II-XII, grossly intact .Follows commands in all 4 extremities. A/P Assessment and Plan This 72-year-old male with tobacco abuse and noted lung mass suspicious for lung malignancy, will schedule plan for biopsy/excision of lung mass 07/02/17 at [facility]. Currently in no apparent distress Neurologic: Anxiety disorder Alcohol use Neurochecks per ICU protocol Patient describes 2 glasses of wine/or 2 glasses of beer daily Monitor for signs of alcohol withdrawal Ativan 1 mg every 3 hours when necessary for agitation Continue BuSpar 10 mg twice a day (home medication) Respiratory: COPD exacerbation Acute respiratory insufficiency-resolved Tobacco abuse Right upper lobe lung mass 1.8 cm Lymphadenopathy-1.7 precarinal lymph node Maintain O2 sat greater than 92%, currently on nasal cannula 3 L/m Continue to wean O2 off as tolerated The patient scheduled for PFTs for preop surgical evaluation 06/27 at [facility] with subsequent thoracotomy biopsy/excision of right upper lobe lung mass on 07/02 Methylprednisolone 40 mg every 12 hours Duo nebs every 6 hours scheduled, every 2 hours when necessary Cardiovascular: Hypertension Sinus tachycardia 06/24 Patient received Cardizem and metoprolol in ED 06/24 EKG-sinus tachycardia, possible anterior [place] Follow-up troponin levels Continue metoprolol 25 mg twice a day, Norvasc 10 mg by mouth at bedtime, enalapril 20 mg twice a day-patient's antihypertensive home medications Renal: Left Adrenal mass 2.6 cm BPH Bladder scan if > 300cc Insert griffin Continue terazosin 5 mg by mouth at bedtime patient's home medication -- Strict I/Os FEN/GI: Hyponatremia GERD Discontinue IV [id number]-Soox IV Resume PO diet Zofran for nausea Metoclopramide for nausea Bowel regimen Heme/ID: Hepatitis C Monitor CBC Obtain cultures if clinically indicated, patient currently afebrile WBC count within normal limits Empirically begin Zosyn and azithromycin Endocrine: Diabetes mellitus type 2 Glucose monitoring per ICU protocol-medium dose regimen -- SSI Prophylaxis: GI Prophylaxis Protonix 40/day- patient's home medication DVT Prophylaxis -- SCDs Heparin twice a day Lines: Peripheral IVs 2 providing adequate access at this time Dispo: Discussed with TRACTOR CRANE ENGINEER at bedside, patient. And transfer to [facility] in a.m.. Level 2 Physician Radha Herndon MD Jun 25, 2017 09:23
--- NOTE | 2017-06-25 11:19 | EKG ---
Date Performed: 06/24/2017 Time Performed: 13:06:14 PTAGE: 72 years EKG: SINUS TACHYCARDIA POSSIBLE ANTERIOR MYOCARDIAL INFARCTION ABNORMAL ECG PREVIOUS TRACING : 03/27/2013 12.38 Compared to prior tracing no significant change DOCTOR: Debra Aquino Interpretating Date/Time 06/25/2017 11:18:05
--- NOTE | 2017-06-25 11:20 | EKG ---
Date Performed: 06/24/2017 Time Performed: 14:54:38 PTAGE: 72 years EKG: SUPRAVENTRICULAR TACHYCARDIA POSSIBLE ANTERIOR MYOCARDIAL INFARCTION ABNORMAL ECG PREVIOUS TRACING : 06/24/2017 13.06 Compared to prior tracing no significant change DOCTOR: Debra Aquino Interpretating Date/Time 06/25/2017 11:18:12
[2017-06-25] MEDS: AZITHROMYCIN INJ 250 MG in SODIUM CHLOR 0.9% 250 ML INJ 250 ML IV SCH (20:39)
[2017-06-25] MEDS: TERAZOSIN HCL 5 MG CAP PO SCH (21:48)
[2017-06-25] MEDS ORDERED: ALPRAZolam 0.25 MG TAB PO ONE (23:30)
[2017-06-26] VITALS (7 sets, daily range): BP systolic 119–187; BP diastolic 68–100; PULSE 90–123; RESP 18–30; TEMP 95.5–99.4; O2SAT 92–99
[2017-06-26] MEDS: INSULIN ASPART SUPPLEMENTAL SCALE SQ SCH ×6 (02:00→21:04)
[2017-06-26] MEDS: PIPERACIL-TAZO 3.375 GM PREMIX 50 ML IV SCH (03:23)
[2017-06-26] MEDS: RESP: ALBUTEROL 2.5 MG/IPRATROPIUM 0.5 MG NEB (SCH) INH ×4 (03:25→22:45)
[2017-06-26] MEDS: CHLORHEXIDINE GLUCONATE 2 % 1 PACK (2 CLOTHS) TOP SCH (04:00)
[2017-06-26 05:22] LABS: HEMATOCRIT 37.8 % (39.0-51.0); MEAN CELL VOLUME 97.9 FL (80.0-100.0); MEAN CORPUSCULAR HEMOGLOBIN 32.7 PG (27.0-34.0); MEAN CORPUSCULAR HGB CONC 33.4 % (32.0-36.0); PLATELET COUNT 232 TH/MM3 (150-450); RED BLOOD COUNT 3.86 MIL/MM3 (4.50-5.90); RED CELL DISTRIBUTION WIDTH 13.3 % (11.6-17.2); REVIEW FLAG FINAL; WHITE BLOOD COUNT 12.6 TH/MM3 (4.0-11.0)
[2017-06-26] MEDS: HEPARIN SODIUM - SQ 10,000 UNITS/ML VIAL SQ SCH ×2 (05:29→17:41)
[2017-06-26 06:22] LABS: BICARBONATE 23.4 MEQ/L (21.0-32.0); MAGNESIUM 2.4 MG/DL (1.5-2.5); POTASSIUM 3.8 MEQ/L (3.5-5.1)
[2017-06-26] MEDS: methylPREDNISolone SOD SUCC 40 MG/1 ML VIAL IV PUSH SCH ×2 (10:08→20:49)
[2017-06-26] MEDS: PANTOPRAZOLE SODIUM 40 MG VIAL IV PUSH SCH (10:08)
[2017-06-26] MEDS: LORazepam 2 MG/ML VIAL IV PUSH PRN ×2 (10:09→20:57)
[2017-06-26] MEDS: ENALAPRIL MALEATE 10 MG TAB PO SCH ×2 (10:09→20:48)
[2017-06-26] MEDS: DOCUSATE SODIUM 50 MG/SENNA 8.6 MG TAB PO SCH ×2 (10:09→20:49)
[2017-06-26] MEDS: METOPROLOL TARTRATE 25 MG TAB PO SCH ×2 (10:09→20:48)
[2017-06-26] MEDS: busPIRone HCL 10 MG TAB PO SCH ×2 (10:09→20:48)
--- NOTE | 2017-06-26 13:48 | MB ---
cc: ANABELA PEÑALOZA M.D. DATE OF CONSULTATION: 06/25/2017 REASON FOR CONSULTATION COPD exacerbation, lung mass. HISTORY OF PRESENT ILLNESS The patient is a 72-year-old male who presents to the emergency room with increasing shortness of breath, cough and expectoration, small amount of whitish sputum. The patient has known history of lung mass which he tells me plans for surgery by [facility] in [place] which is already planned. He is a patient of Dr. Montana Thomas who is following up his care. Pulmonary function has been scheduled as an outpatient, however, it is not yet done. The patient denies history of fever, chills, no hemoptysis, no TB, no industrial exposure. PAST MEDICAL HISTORY 1. COPD. 2. Respiratory failure. 3. Diabetes mellitus. 4. Hypertension. 5. Acid reflux. FAMILY HISTORY Noncontributory. ALLERGIES DIPHENHYDRAMINE, HYDROXYZINE. MEDICATIONS Medications at home include: 1. Pantoprazole. 2. Metformin. 3. Buspirone. 4. Metoprolol. 5. Glipizide. 6. Enalapril. 7. Norvasc. REVIEW OF SYSTEMS 12-point review of systems as per HPI and past history, otherwise negative. PHYSICAL EXAMINATION GENERAL: The patient is alert. VITAL SIGNS: Temperature 99, pulse 90, respirations 20, blood pressure 112/60. Oxygen saturation 97% on 3 liters oxygen via nasal cannula. HEENT: Exam unremarkable. Eyes without icterus. NECK: Without adenopathy or thyroid enlargement. Central trachea. CHEST: Few scattered rhonchi bilaterally. CARDIAC: PMI not appreciated. S1-S2 audible. No murmur or rub. ABDOMEN: Obese, lax. Bowel sounds audible. EXTREMITIES: No clubbing, cyanosis or edema. SKIN: Normal. No lymphadenopathy. LABORATORY DATA CT scan of the chest with a 1.8 cm mass right upper lung and malignancy suspect. A 1.7 cm lymph node in the precarinal area is noted as well. A 2.6 cm left adrenal mass as well is seen. The patient's white count is 6.4, hemoglobin 13, hematocrit 40, platelets 252,000. Sodium 136, potassium 3.9, BUN 21, creatinine 1.1. IMPRESSION 1. COPD exacerbation. 2. Lung mass malignancy suspect. 3. Hypertension. 4. Diabetes mellitus. 5. Mood disorder. PLAN The patient to continue oxygen therapy, bronchodilator therapy, pulmonary function will be obtained to assess pulmonary performance. Dr. Thomas to follow up the patient's care. He is known to him in the past and surgery has already been planned prior to his hospitalization. I do thank you for asking me to partake in Mr. Magallanes's care. Anabela Peñaloza MD [id number] /5:01 PM /1:28 PM
--- NOTE | 2017-06-26 14:42 | HHI.PR ---
Subjective Remarks Patient reports is still very short of breath. He does not believe he can go through any more testing or surgery related to the lung mass until his breathing status is better. Continues to have persistent coughing spells. Objective Vitals Vital Signs Date Time Temp Pulse Resp B/P (MAP) Pulse Ox O2 Delivery O2 Flow Rate FiO2 06/26/17 09:42 93 Nasal Cannula 2.00 06/26/17 04:00 98.7 98 22 131/68 (89) 93 06/26/17 02:08 92 29 119/74 (89) 98 06/26/17 00:01 99.4 90 30 119/73 (88) 96 06/25/17 23:01 94 32 118/74 (89) 96 06/25/17 23:00 94 06/25/17 22:01 96 28 136/78 (97) 96 06/25/17 21:01 114 32 136/72 (93) 94 06/25/17 20:01 99.7 120 28 136/71 (92) 94 06/25/17 20:00 96 Nasal Cannula 1.00 06/25/17 20:00 98 06/25/17 19:30 93 Nasal Cannula 1.00 06/25/17 18:00 114 29 155/86 (109) 95 06/25/17 18:00 114 06/25/17 17:00 114 38 161/81 (107) 95 06/25/17 16:00 99.5 102 20 112/58 (76) 97 06/25/17 16:00 102 06/25/17 16:00 102 06/25/17 15:00 106 20 107/70 (82) 93 I/O 06/25/17 06/25/17 06/25/17 06/26/17 06/26/17 06/26/17 07:00 15:00 23:00 07:00 15:00 23:00 Intake Total 1356 ml 302 ml 870 ml 200 ml Output Total 450 ml 600 ml 250 ml Balance 906 ml 302 ml 270 ml -50 ml Intake Oral 242 ml 820 ml 200 ml IV Total 1114 ml 302 ml 50 ml Output Urine Total 450 ml 600 ml 250 ml # Voids 2 1 # Bowel Movements 0 0 0 Result Diagram: 06/26/17 0500 06/26/17 0500 Imaging Last Impressions Chest X-Ray 06/25/17 0600 Signed Impressions: Service Date/Time: Sunday, June 25, 2017 06:00 - CONCLUSION: No acute disease. Maximilian Lira MD CT Angiography 06/24/17 1229 Signed Impressions: Service Date/Time: Saturday, June 24, 2017 13:46 - CONCLUSION: 1. No evidence of pulmonary embolism or acute cardiopulmonary process. 2. 1.8 cm spiculated mass right upper lobe characteristic for malignancy. 3. 1.7 cm precarinal lymph node which may represent malignant lymphadenopathy. 4. 2.6 cm left adrenal gland mass Hiram Eric MD Objective Remarks GENERAL: Elderly and frail male in no apparent distress. CARDIOVASCULAR: Normal rate and regular rhythm without murmurs, gallops, or rubs. RESPIRATORY: Poor air movement. Diffuse rhonchi bilaterally. GASTROINTESTINAL: Abdomen soft, non-tender, non-distended. Normal active bowel sounds MUSCULOSKELETAL: Extremities without cyanosis, or edema. NEURO: Alert & Oriented x4 to person, place, time, situation. Moves all ext x4 PSYCH: Appropriate mood and affect. A/P Assessment and Plan 73-year-old male with COPD and lung mass suspicious for malignancy admitted with worsening respiratory failure. COPD exacerbation Acute respiratory insufficiency-resolved Tobacco abuse Right upper lobe lung mass 1.8 cm Lymphadenopathy-1.7 precarinal lymph node Continue supplemental oxygen to keep sats greater than 92%. - Pulmonology has been consulted - Continue Solu-Medrol - Patient was due to have preop PFTs tomorrow with subsequent excisional right upper lobe lung mass on 07/02. However his respiratory status is still poor and he does not want to go through any testing or procedures at this point. Advised the patient to discuss this further with his greens tier. Duo nebs every 6 hours scheduled, every 2 hours when necessary - Discontinue Zosyn and Zithromax as there is no convincing evidence of an infectious process. Anxiety disorder Alcohol use Patient describes 2 glasses of wine/or 2 glasses of beer daily Monitor for signs of alcohol withdrawal Ativan 1 mg every 3 hours when necessary for agitation Continue BuSpar 10 mg twice a day (home medication) Hypertension Sinus tachycardia 06/24 Patient received Cardizem and metoprolol in ED 06/24 EKG-sinus tachycardia, possible anterior [place] Cardiac enzymes unremarkable Continue metoprolol 25 mg twice a day, Norvasc 10 mg by mouth at bedtime, enalapril 20 mg twice a day-patient's antihypertensive home medications Left Adrenal mass 2.6 cm BPH Outpatient follow-up advised Continue terazosin 5 mg by mouth at bedtime patient's home medication Hepatitis C Monitor CBC Obtain cultures if clinically indicated, patient currently afebrile WBC count within normal limits Empirically begin Zosyn and azithromycin Diabetes mellitus type 2 -- SSI with Accu-Cheks GI prophylaxis: PPI. Stool softener PRN constipation. DVT PPx: Heparin Discharge Planning Stable for transfer to floor. Frank Haque MD Jun 26, 2017 14:42
--- NOTE | 2017-06-26 19:03 | HHI.PR ---
Subjective Remarks Seen and Examined. Pt with a H/O Adenocarcinoma of the Right lung has been scheduled for a Lobectomy ,but needs PFT's to be done. Now admitted for Acute exacerbation of COPD but is better on Antibiotics and steroids. On O2 2 L. Objective Vital Signs Date Time Temp Pulse Resp B/P (MAP) Pulse Ox O2 Delivery O2 Flow Rate FiO2 06/26/17 16:00 98.2 115 22 161/95 (117) 92 06/26/17 15:27 Nasal Cannula 2.00 35 06/26/17 09:42 93 Nasal Cannula 2.00 06/26/17 04:00 98.7 98 22 131/68 (89) 93 06/26/17 02:08 92 29 119/74 (89) 98 06/26/17 00:01 99.4 90 30 119/73 (88) 96 06/25/17 23:01 94 32 118/74 (89) 96 06/25/17 23:00 94 06/25/17 22:01 96 28 136/78 (97) 96 06/25/17 21:01 114 32 136/72 (93) 94 06/25/17 20:01 99.7 120 28 136/71 (92) 94 06/25/17 20:00 96 Nasal Cannula 1.00 06/25/17 20:00 98 06/25/17 19:30 93 Nasal Cannula 1.00 I/O 06/25/17 06/25/17 06/25/17 06/26/17 06/26/17 06/26/17 07:00 15:00 23:00 07:00 15:00 23:00 Intake Total 1356 ml 302 ml 870 ml 200 ml Output Total 450 ml 600 ml 250 ml Balance 906 ml 302 ml 270 ml -50 ml Intake Oral 242 ml 820 ml 200 ml IV Total 1114 ml 302 ml 50 ml Output Urine Total 450 ml 600 ml 250 ml # Voids 2 1 # Bowel Movements 0 0 0 Result Diagram: 06/26/17 0500 06/26/17 0500 Objective Remarks GENERAL: The patient is alert. VITAL SIGNS: Temperature 99, pulse 90, respirations 20, blood pressure 112/60. Oxygen saturation 97% on 3 liters oxygen via nasal cannula. HEENT: Exam unremarkable. Eyes without icterus. NECK: Without adenopathy or thyroid enlargement. Central trachea. CHEST: Few scattered rhonchi bilaterally. CARDIAC: PMI not appreciated. S1-S2 audible. No murmur or rub. ABDOMEN: Obese, lax. Bowel sounds audible. EXTREMITIES: No clubbing, cyanosis or edema. SKIN: Normal. No lymphadenopathy. LABORATORY DATA CT scan of the chest with a 1.8 cm mass right upper lung and found to be [place]. . A 1.7 cm lymph node in the precarinal area is noted as well. A 2.6 cm left adrenal mass as well is seen. The patient's white count is 6.4, hemoglobin 13, hematocrit 40, platelets 252,000. Sodium 136, potassium 3.9, BUN 21, creatinine 1.1. Assessment and Plan Assessment and Plan IMPRESSION 1. COPD exacerbation. 2. Lung mass malignancy suspect. 3. Hypertension. 4. Diabetes mellitus. 5. Mood disorder. Plan : 1. PFT with Bronchodilator. 2. Nebs qid , duoneb 3. O2 at 2 l. 4. Cont Zithromax PO. 5. Continue prednisone 10 mg bid. 6. Will need to see thoracic surgery this week after PFT's Done Brandi Thomas MD Jun 26, 2017 19:03
[2017-06-26] MEDS: TERAZOSIN HCL 5 MG CAP PO SCH (20:48)
[2017-06-27] VITALS (7 sets, daily range): BP systolic 164–183; BP diastolic 80–105; PULSE 88–108; RESP 18–22; TEMP 96.8–98.9; O2SAT 92–99
[2017-06-27] MEDS ORDERED: INSULIN ASPART SUPPLEMENTAL SCALE SQ SCH
[2017-06-27] MEDS: RESP: ALBUTEROL 2.5 MG/IPRATROPIUM 0.5 MG NEB (SCH) INH ×4 (03:31→21:52)
[2017-06-27] MEDS: CHLORHEXIDINE GLUCONATE 2 % 1 PACK (2 CLOTHS) TOP SCH (04:00)
[2017-06-27] MEDS: INSULIN ASPART SUPPLEMENTAL SCALE SQ SCH ×6 (04:00→20:41)
[2017-06-27] MEDS: HEPARIN SODIUM - SQ 10,000 UNITS/ML VIAL SQ SCH ×2 (06:09→18:00)
[2017-06-27 08:08] LABS: HEMATOCRIT 37.3 % (39.0-51.0); MEAN CELL VOLUME 97.6 FL (80.0-100.0); MEAN CORPUSCULAR HEMOGLOBIN 33.5 PG (27.0-34.0); MEAN CORPUSCULAR HGB CONC 34.3 % (32.0-36.0); PLATELET COUNT 223 TH/MM3 (150-450); RED BLOOD COUNT 3.82 MIL/MM3 (4.50-5.90); RED CELL DISTRIBUTION WIDTH 12.8 % (11.6-17.2); REVIEW FLAG FINAL; WHITE BLOOD COUNT 9.1 TH/MM3 (4.0-11.0)
[2017-06-27 08:18] LABS: BICARBONATE 28.1 MEQ/L (21.0-32.0)
[2017-06-27] MEDS: METOPROLOL TARTRATE 25 MG TAB PO SCH ×2 (08:39→20:40)
[2017-06-27] MEDS: ENALAPRIL MALEATE 10 MG TAB PO SCH ×2 (08:39→20:40)
[2017-06-27] MEDS: DOCUSATE SODIUM 50 MG/SENNA 8.6 MG TAB PO SCH ×2 (08:39→20:41)
[2017-06-27] MEDS: PANTOPRAZOLE SOD 40 MG DELAYED RELEASE TAB PO SCH (08:39)
[2017-06-27] MEDS: busPIRone HCL 10 MG TAB PO SCH ×2 (08:39→20:40)
[2017-06-27] MEDS: methylPREDNISolone SOD SUCC 40 MG/1 ML VIAL IV PUSH SCH ×2 (08:40→20:40)
[2017-06-27] MEDS: LORazepam 2 MG/ML VIAL IV PUSH PRN ×2 (09:21→20:40)
--- NOTE | 2017-06-27 17:27 | HHI.PR ---
Subjective Remarks sob slowly improving as per patient. denies cp asking when he will be able to leave down to 2 liters nasal canula - sating 92% Objective Vitals Vital Signs Date Time Temp Pulse Resp B/P (MAP) Pulse Ox O2 Delivery O2 Flow Rate FiO2 06/27/17 14:36 97.8 92 18 170/80 (110) 93 06/27/17 10:18 92 Nasal Cannula 2.00 06/27/17 08:00 98.3 95 22 179/98 (125) 93 06/27/17 08:00 102 06/27/17 08:00 Nasal Cannula 2.00 06/27/17 04:00 98.1 88 18 164/101 (122) 97 06/27/17 00:00 98.9 105 18 183/105 (131) 97 06/26/17 22:46 99 Nasal Cannula 3.00 06/26/17 20:00 Nasal Cannula 2.00 06/26/17 20:00 105 06/26/17 20:00 95.5 123 18 187/100 (129) 97 06/26/17 20:00 105 I/O 06/26/17 06/26/17 06/26/17 06/27/17 06/27/17 06/27/17 07:00 15:00 23:00 07:00 15:00 23:00 Intake Total 200 ml 420 ml 380 ml Output Total 250 ml 200 ml Balance -50 ml 220 ml 380 ml Intake Oral 200 ml 420 ml 380 ml Output Urine Total 250 ml 200 ml # Voids 6 # Bowel Movements 0 0 0 Result Diagram: 06/27/17 0715 06/27/17 0715 Imaging Last Impressions Chest X-Ray 06/25/17 0600 Signed Impressions: Service Date/Time: Sunday, June 25, 2017 06:00 - CONCLUSION: No acute disease. Maximilian Lira MD CT Angiography 06/24/17 1229 Signed Impressions: Service Date/Time: Saturday, June 24, 2017 13:46 - CONCLUSION: 1. No evidence of pulmonary embolism or acute cardiopulmonary process. 2. 1.8 cm spiculated mass right upper lobe characteristic for malignancy. 3. 1.7 cm precarinal lymph node which may represent malignant lymphadenopathy. 4. 2.6 cm left adrenal gland mass Hiram Eric MD Objective Remarks AAOx3 standing on side of the bed diffuse BL expiratory wheezing on lung exam. No rhonchi auscultated. S1S2 + RRR, no MRG abdomen soft, nt, nd Medications and IVs Current Medications Medications (Trade) Dose Ordered Sig/Cory Route Start Time Stop Time Status Last Admin (NS Flush) 2 ml UNSCH PRN IVF 06/24/17 12:30 (NS Flush) 2 ml UNSCH PRN IV FLUSH 06/24/17 17:30 (Tylenol) 650 mg Q6H PRN PO 06/24/17 18:00 (Ativan Inj) 1 mg Q3H PRN IV PUSH 06/24/17 18:00 06/27/17 09:21 (Zofran Inj) 4 mg Q6H PRN IV PUSH 06/24/17 21:00 (Duoneb Neb) 1 ampule Q6HR NEB INH 06/24/17 22:00 06/27/17 15:50 (Duoneb Neb) 1 ampule Q2HR NEB PRN INH 06/24/17 18:00 06/25/17 05:51 (Heparin Inj) 5,000 units Q12H SQ 06/24/17 18:00 06/27/17 06:09 Miscellaneous Information 1 Q361D XX 06/24/17 17:30 06/24/17 17:30 (Chlorhexidine 2% Cloth) 3 pack Taper DAILY@04 TOP 06/25/17 04:00 06/21/18 03:59 06/25/17 04:00 (Chlorhexidine 2% Cloth) 3 pack UNSCH PRN TOP 06/24/17 17:30 (Yareli-Colace) 1 tab BID PO 06/24/17 21:00 06/27/17 08:39 (Milk Of Magnesia Liq) 30 ml Q12H PRN PO 06/24/17 18:00 (Senokot) 17.2 mg Q12H PRN PO 06/24/17 18:00 (Dulcolax Supp) 10 mg DAILY PRN RECTAL 06/24/17 18:00 (Lactulose Liq) 30 ml DAILY PRN PO 06/24/17 17:30 (D50w (Vial) Inj) 50 ml UNSCH PRN IV 06/24/17 17:30 (Glucagon Inj) 1 mg UNSCH PRN OTHER 06/24/17 17:30 (SoluMEDROL INJ) 40 mg Q12HR IV PUSH 06/24/17 18:00 06/27/17 08:40 (Norvasc) 10 mg HS PO 06/24/17 21:00 06/26/17 20:48 (Buspar) 10 mg BID PO 06/24/17 21:00 06/27/17 08:39 (Vasotec) 20 mg BID PO 06/24/17 21:00 06/27/17 08:39 (Lopressor) 25 mg BID PO 06/24/17 21:00 06/27/17 08:39 (Hytrin) 5 mg HS PO 06/24/17 21:00 06/26/17 20:48 (NovoLOG SUPPLEMENTAL SCALE) 1 Q4HR SQ 06/26/17 00:00 06/26/17 21:04 (Protonix) 40 mg DAILY PO 06/27/17 09:00 06/27/17 08:39 A/P Assessment and Plan 73-year-old male with COPD and lung mass suspicious for malignancy admitted with worsening respiratory failure. COPD exacerbation Acute respiratory insufficiency-resolved Tobacco abuse Right upper lobe lung mass 1.8 cm Lymphadenopathy-1.7 precarinal lymph node Continue supplemental oxygen to keep sats greater than 92%. - Continue Solu-Medrol - Pulmonology consulted, appreciate recommendations. Patient to have PFT with bronchodilator. Duo nebs every 6 hours scheduled, every 2 hours when necessary - Continue Zithromax by mouth. Anxiety disorder Alcohol use Patient describes 2 glasses of wine/or 2 glasses of beer daily Monitor for signs of alcohol withdrawal Ativan 1 mg every 3 hours when necessary for agitation Continue BuSpar 10 mg twice a day (home medication) Hypertension Sinus tachycardia 06/24 Patient received Cardizem and metoprolol in ED 06/24 EKG-sinus tachycardia, possible anterior [place] Cardiac enzymes unremarkable Continue metoprolol 25 mg twice a day, Norvasc 10 mg by mouth at bedtime, enalapril 20 mg twice a day-patient's antihypertensive home medications 06/27 BP severely elevated. I will increase the dose of metoprolol to 50 mg twice a day, continue Norvasc 10 mg by mouth at bedtime and output 20 mg twice a day. Left Adrenal mass 2.6 cm BPH Outpatient follow-up advised Continue terazosin 5 mg by mouth at bedtime patient's home medication Hepatitis C Monitor CBC Obtain cultures if clinically indicated, patient currently afebrile WBC count within normal limits Empirically begin Zosyn and azithromycin Diabetes mellitus type 2 -- SSI with Accu-Cheks GI prophylaxis: PPI. Stool softener PRN constipation. DVT PPx: Heparin Bhargav Braden MD Jun 27, 2017 17:27
[2017-06-27] MEDS: TERAZOSIN HCL 5 MG CAP PO SCH (20:40)
[2017-06-27] MEDS: INSULIN DETEMIR 100 UNITS/ML VIAL SQ SCH (20:41)
[2017-06-28] VITALS (12 sets, daily range): BP systolic 154–184; BP diastolic 82–107; PULSE 88–118; RESP 18–24; TEMP 96.3–98.2; O2SAT 90–98
[2017-06-28] MEDS: INSULIN ASPART SUPPLEMENTAL SCALE SQ SCH ×6 (03:48→20:29)
[2017-06-28] MEDS: CHLORHEXIDINE GLUCONATE 2 % 1 PACK (2 CLOTHS) TOP SCH (03:49)
[2017-06-28] MEDS: RESP: ALBUTEROL 2.5 MG/IPRATROPIUM 0.5 MG NEB (SCH) INH ×4 (04:11→21:15)
[2017-06-28] MEDS: HEPARIN SODIUM - SQ 10,000 UNITS/ML VIAL SQ SCH ×2 (05:51→16:26)
[2017-06-28] MEDS: methylPREDNISolone SOD SUCC 40 MG/1 ML VIAL IV PUSH SCH ×2 (08:34→20:28)
[2017-06-28] MEDS: PANTOPRAZOLE SOD 40 MG DELAYED RELEASE TAB PO SCH (08:34)
[2017-06-28] MEDS: busPIRone HCL 10 MG TAB PO SCH ×2 (08:35→20:28)
[2017-06-28] MEDS: METOPROLOL TARTRATE 25 MG TAB PO SCH (08:35)
[2017-06-28] MEDS: ENALAPRIL MALEATE 10 MG TAB PO SCH ×2 (08:35→20:28)
[2017-06-28] MEDS: DOCUSATE SODIUM 50 MG/SENNA 8.6 MG TAB PO SCH ×2 (08:42→20:27)
[2017-06-28] MEDS: LORazepam 2 MG/ML VIAL IV PUSH PRN ×2 (08:45→21:38)
[2017-06-28] MEDS: INSULIN DETEMIR 100 UNITS/ML VIAL SQ SCH ×2 (08:46→20:28)
[2017-06-28] MEDS ORDERED: METOPROLOL TARTRATE 25 MG TAB PO ONE (12:00)
[2017-06-28] MEDS ORDERED: cloNIDine HCL 0.1 MG TAB PO PRN (16:15)
[2017-06-28] MEDS ORDERED: hydrALAZINE HCL 20 MG/ML VIAL IV PUSH PRN (16:15)
--- NOTE | 2017-06-28 19:31 | HHI.PR ---
Subjective Remarks Deferred entry, patient seen earlier at 4 PM The patient states his breathing is much improved. BP noted to be severely elevated with a systolic blood pressure in the 180s. Patient denies any headache, nausea, vomiting, chest pain No fevers or chills Objective Vitals Vital Signs Date Time Temp Pulse Resp B/P (MAP) Pulse Ox O2 Delivery O2 Flow Rate FiO2 06/28/17 16:00 98.0 93 21 181/107 (131) 91 06/28/17 14:30 88 06/28/17 12:01 Nasal Cannula 2.00 06/28/17 12:00 98.2 89 18 181/107 (131) 98 06/28/17 10:26 96 Nasal Cannula 2.00 06/28/17 08:00 96.3 96 20 166/100 (122) 97 06/28/17 07:49 90 21 06/28/17 07:40 95 Nasal Cannula 2.00 06/28/17 04:00 96.3 93 18 184/87 (119) 97 06/28/17 00:00 97.1 102 18 174/101 (125) 98 06/27/17 21:52 95 Nasal Cannula 2.00 06/27/17 20:00 91 06/27/17 20:00 Nasal Cannula 2.00 06/27/17 20:00 96.8 108 18 180/94 (122) 99 I/O 06/27/17 06/27/17 06/27/17 06/28/17 06/28/17 06/28/17 07:00 15:00 23:00 07:00 15:00 23:00 Intake Total 420 ml 430 ml 720 ml 720 ml Output Total 200 ml Balance 220 ml 430 ml 720 ml 720 ml Intake Oral 420 ml 380 ml 720 ml 720 ml IV Total 50 ml Output Urine Total 200 ml # Voids 6 3 3 # Bowel Movements 0 0 3 1 Result Diagram: 06/27/1715 06/27/1715 Imaging Last Impressions Chest X-Ray 06/25/17 0600 Signed Impressions: Service Date/Time: Sunday, June 25, 2017 06:00 - CONCLUSION: No acute disease. Maximilian Lira MD CT Angiography 06/24/17 1229 Signed Impressions: Service Date/Time: Saturday, June 24, 2017 13:46 - CONCLUSION: 1. No evidence of pulmonary embolism or acute cardiopulmonary process. 2. 1.8 cm spiculated mass right upper lobe characteristic for malignancy. 3. 1.7 cm precarinal lymph node which may represent malignant lymphadenopathy. 4. 2.6 cm left adrenal gland mass Hiram Eric MD Objective Remarks AAOx3 standing on side of the bed diffuse BL expiratory wheezing on lung exam. No rhonchi auscultated. S1S2 + RRR, no MRG abdomen soft, nt, nd Medications and IVs Current Medications Medications (Trade) Dose Ordered Sig/Cory Route Start Time Stop Time Status Last Admin (NS Flush) 2 ml UNSCH PRN IVF 06/24/17 12:30 (NS Flush) 2 ml UNSCH PRN IV FLUSH 06/24/17 17:30 (Tylenol) 650 mg Q6H PRN PO 06/24/17 18:00 (Ativan Inj) 1 mg Q3H PRN IV PUSH 06/24/17 18:00 06/28/17 08:45 (Zofran Inj) 4 mg Q6H PRN IV PUSH 06/24/17 21:00 (Duoneb Neb) 1 ampule Q6HR NEB INH 06/24/17 22:00 06/28/17 14:43 (Duoneb Neb) 1 ampule Q2HR NEB PRN INH 06/24/17 18:00 06/25/17 05:51 (Heparin Inj) 5,000 units Q12H SQ 06/24/17 18:00 06/28/17 16:26 Miscellaneous Information 1 Q361D XX 06/24/17 17:30 06/24/17 17:30 (Chlorhexidine 2% Cloth) 3 pack Taper DAILY@04 TOP 06/25/17 04:00 06/21/18 03:59 06/25/17 04:00 (Chlorhexidine 2% Cloth) 3 pack UNSCH PRN TOP 06/24/17 17:30 (Yareli-Colace) 1 tab BID PO 06/24/17 21:00 06/27/17 08:39 (Milk Of Magnesia Liq) 30 ml Q12H PRN PO 06/24/17 18:00 (Senokot) 17.2 mg Q12H PRN PO 06/24/17 18:00 (Dulcolax Supp) 10 mg DAILY PRN RECTAL 06/24/17 18:00 (Lactulose Liq) 30 ml DAILY PRN PO 06/24/17 17:30 (D50w (Vial) Inj) 50 ml UNSCH PRN IV 06/24/17 17:30 (Glucagon Inj) 1 mg UNSCH PRN OTHER 06/24/17 17:30 (SoluMEDROL INJ) 40 mg Q12HR IV PUSH 06/24/17 18:00 06/28/17 08:34 (Norvasc) 10 mg HS PO 06/24/17 21:00 06/27/17 20:39 (Buspar) 10 mg BID PO 06/24/17 21:00 06/28/17 08:35 (Vasotec) 20 mg BID PO 06/24/17 21:00 06/28/17 08:35 (Hytrin) 5 mg HS PO 06/24/17 21:00 06/27/17 20:40 (NovoLOG SUPPLEMENTAL SCALE) 1 Q4HR SQ 06/26/17 00:00 06/28/17 16:27 (Protonix) 40 mg DAILY PO 06/27/17 09:00 06/28/17 08:34 (Levemir Inj) 5 units Q12HR SQ 06/27/17 21:00 06/28/17 08:46 (Lopressor) 50 mg BID PO 06/28/17 21:00 (Catapres) 0.1 mg Q6H PRN PO 06/28/17 16:15 (Apresoline Inj) 20 mg Q4H PRN IV PUSH 06/28/17 16:15 06/28/17 16:26 Urinary Catheter: No Vascular Central Line Catheter: No A/P Problem List: (1) Tobacco abuse ICD Code: Z72.0 - Tobacco use (2) Lung mass ICD Code: R91.8 - Other nonspecific abnormal finding of lung field (3) Lymphadenopathy ICD Code: R59.1 - Generalized enlarged lymph nodes (4) Anxiety ICD Code: F41.9 - Anxiety disorder, unspecified (5) Adrenal mass, left ICD Code: E27.9 - Disorder of adrenal gland, unspecified (6) BPH (benign prostatic hyperplasia) ICD Code: N40.0 - Benign prostatic hyperplasia without lower urinary tract symptoms (7) Hepatitis C ICD Code: B19.20 - Unspecified viral hepatitis C without hepatic coma (8) Diabetes ICD Code: E11.9 - Type 2 diabetes mellitus without complications (9) COPD exacerbation ICD Code: J44.1 - Chronic obstructive pulmonary disease with (acute) exacerbation Status: Acute Assessment and Plan 73-year-old male with COPD and lung mass suspicious for malignancy admitted with worsening respiratory failure. COPD exacerbation Acute respiratory insufficiency-resolved Tobacco abuse Right upper lobe lung mass 1.8 cm Lymphadenopathy-1.7 precarinal lymph node Continue supplemental oxygen to keep sats greater than 92%. - Continue Solu-Medrol - Pulmonology consulted, appreciate recommendations. Patient to have PFT with bronchodilator. Duo nebs every 6 hours scheduled, every 2 hours when necessary - Continue Zithromax by mouth. Anxiety disorder Alcohol use Patient describes 2 glasses of wine/or 2 glasses of beer daily Monitor for signs of alcohol withdrawal Ativan 1 mg every 3 hours when necessary for agitation Continue BuSpar 10 mg twice a day (home medication) Hypertension Sinus tachycardia 06/24 Patient received Cardizem and metoprolol in ED 06/24 EKG-sinus tachycardia, possible anterior [place] Cardiac enzymes unremarkable Continue metoprolol 25 mg twice a day, Norvasc 10 mg by mouth at bedtime, enalapril 20 mg twice a day-patient's antihypertensive home medications 06/28 continue metoprolol and lisinopril. Increase dose of metoprolol to 50 minutes by mouth twice a day. If there is no improvement I will start the patient on Cardura at bedtime. Continue hydralazine and clonidine when necessary. Left Adrenal mass 2.6 cm BPH Outpatient follow-up advised Continue terazosin 5 mg by mouth at bedtime patient's home medication Hepatitis C Monitor CBC Obtain cultures if clinically indicated, patient currently afebrile WBC count within normal limits Empirically begin Zosyn and azithromycin Diabetes mellitus type 2 -- SSI with Accu-Cheks Much improved blood sugars today. Continue insulin Levemir 5 units subcutaneous every 12 hours and SSI with insulin NovoLog. GI prophylaxis: PPI. Stool softener PRN constipation. DVT PPx: Heparin Discharge Planning I will discharge once blood pressure improved. Bhargav Braden MD Jun 28, 2017 19:31
[2017-06-28] MEDS: TERAZOSIN HCL 5 MG CAP PO SCH (20:28)
[2017-06-28] MEDS: METOPROLOL TARTRATE 50 MG TAB PO SCH (20:45)
[2017-06-28] MEDS ORDERED: DOXAZOSIN MESYLATE 2 MG TAB PO SCH (21:00)
[2017-06-29] VITALS (10 sets, daily range): BP systolic 138–190; BP diastolic 80–113; PULSE 78–105; RESP 18–25; TEMP 98–99.2; O2SAT 93–99
[2017-06-29] MEDS: INSULIN ASPART SUPPLEMENTAL SCALE SQ SCH ×6 (04:00→21:07)
[2017-06-29] MEDS: CHLORHEXIDINE GLUCONATE 2 % 1 PACK (2 CLOTHS) TOP SCH ×2 (04:00→21:07)
[2017-06-29] MEDS: RESP: ALBUTEROL 2.5 MG/IPRATROPIUM 0.5 MG NEB (PRN) INH ×4 (04:16→22:02)
[2017-06-29] MEDS: HEPARIN SODIUM - SQ 10,000 UNITS/ML VIAL SQ SCH ×2 (05:49→16:44)
[2017-06-29 08:09] LABS: AUTOMATED NEUTROPHIL # 5.6 TH/MM3 (1.8-7.7); BASOPHIL % 0.5 % (0.0-2.0); EOSINOPHIL % 0.1 % (0.0-4.0); HEMATOCRIT 42.8 % (39.0-51.0); HEMO FLAGS DIFF FINAL; LYMPH % 15.4 % (9.0-44.0); LYMPHOCYTE # 1.1 TH/MM3 (1.0-4.8); MEAN CELL VOLUME 97.8 FL (80.0-100.0); MEAN CORPUSCULAR HEMOGLOBIN 32.4 PG (27.0-34.0); MEAN CORPUSCULAR HGB CONC 33.2 % (32.0-36.0); MONO % 10.1 % (0.0-8.0); NEUT % 73.9 % (16.0-70.0); PLATELET COUNT 243 TH/MM3 (150-450); RED BLOOD COUNT 4.37 MIL/MM3 (4.50-5.90); RED CELL DISTRIBUTION WIDTH 12.8 % (11.6-17.2); WHITE BLOOD COUNT 7.4 TH/MM3 (4.0-11.0)
[2017-06-29 08:25] LABS: CHLORIDE 107 MEQ/L (98-107); POTASSIUM 3.7 MEQ/L (3.5-5.1); SODIUM (NA) 143 MEQ/L (136-145)
[2017-06-29 08:31] LABS: ANION GAP 9 MEQ/L (5-15); BICARBONATE 26.9 MEQ/L (21.0-32.0)
[2017-06-29 08:42] LABS: ALKALINE PHOSPHATASE 41 U/L (45-117); ALT (GPT) 87 U/L (12-78); AST (GOT) 40 U/L (15-37); BLOOD UREA NITROGEN 41 MG/DL (7-18); GLOMERULAR FILTRATION RATE 82 ML/MIN (>89); TOTAL BILIRUBIN ADULT 0.6 MG/DL (0.2-1.0)
[2017-06-29] MEDS: PANTOPRAZOLE SOD 40 MG DELAYED RELEASE TAB PO SCH (09:12)
[2017-06-29] MEDS: methylPREDNISolone SOD SUCC 40 MG/1 ML VIAL IV PUSH SCH ×2 (09:12→21:06)
[2017-06-29] MEDS: INSULIN DETEMIR 100 UNITS/ML VIAL SQ SCH ×2 (09:12→21:06)
[2017-06-29] MEDS: DOCUSATE SODIUM 50 MG/SENNA 8.6 MG TAB PO SCH ×2 (09:12→21:00)
[2017-06-29] MEDS: busPIRone HCL 10 MG TAB PO SCH ×2 (09:12→21:05)
[2017-06-29] MEDS: METOPROLOL TARTRATE 50 MG TAB PO SCH ×2 (09:13→21:03)
[2017-06-29] MEDS: ENALAPRIL MALEATE 10 MG TAB PO SCH ×2 (09:13→21:05)
[2017-06-29] MEDS ORDERED: DOXAZOSIN MESYLATE 2 MG TAB PO ONE (09:45)
--- NOTE | 2017-06-29 14:04 | HHI.PR ---
Subjective Remarks Deferred entry - patient seen at 9:10 am Patient denies any chest pain, shortness of breath is improving Currently satting 95% on 2 L nasal cannula BP is still very elevated with a systolic blood pressures in the 160s Objective Vitals Vital Signs Date Time Temp Pulse Resp B/P (MAP) Pulse Ox O2 Delivery O2 Flow Rate FiO2 06/29/17 12:07 98.0 78 20 166/93 (117) 95 06/29/17 10:22 95 Nasal Cannula 2.00 06/29/17 08:19 98.2 91 20 164/109 (127) 96 06/29/17 08:00 91 Nasal Cannula 2.00 06/29/17 08:00 86 06/29/17 04:00 98.1 84 22 152/80 (104) 93 06/29/17 00:00 98.7 105 25 165/93 (117) 98 06/28/17 21:15 95 Nasal Cannula 2.00 06/28/17 20:30 154/82 (106) 06/28/17 20:00 Nasal Cannula 2.00 06/28/17 20:00 118 06/28/17 20:00 97.2 109 24 167/98 (121) 95 06/28/17 16:00 98.0 93 21 181/107 (131) 91 06/28/17 14:30 88 I/O 06/28/17 06/28/17 06/28/17 06/29/17 06/29/17 06/29/17 07:00 15:00 23:00 07:00 15:00 23:00 Intake Total 720 ml 720 ml 480 ml 220 ml 100 ml Output Total 450 ml Balance 720 ml 720 ml 480 ml -230 ml 100 ml Intake Oral 720 ml 720 ml 480 ml 220 ml 100 ml Output Urine Total 450 ml # Voids 3 3 2 # Bowel Movements 3 1 0 0 Result Diagram: 06/29/17 0715 06/29/17 0715 Imaging Last Impressions Chest X-Ray 06/25/17 0600 Signed Impressions: Service Date/Time: Sunday, June 25, 2017 06:00 - CONCLUSION: No acute disease. Maximilian Lira MD CT Angiography 06/24/17 1229 Signed Impressions: Service Date/Time: Saturday, June 24, 2017 13:46 - CONCLUSION: 1. No evidence of pulmonary embolism or acute cardiopulmonary process. 2. 1.8 cm spiculated mass right upper lobe characteristic for malignancy. 3. 1.7 cm precarinal lymph node which may represent malignant lymphadenopathy. 4. 2.6 cm left adrenal gland mass Hiram Eric MD Objective Remarks AAOx3 standing on side of the bed diffuse BL expiratory wheezing on lung exam. No rhonchi auscultated. S1S2 + RRR, no MRG abdomen soft, nt, nd Medications and IVs Current Medications Medications (Trade) Dose Ordered Sig/Cory Route Start Time Stop Time Status Last Admin (NS Flush) 2 ml UNSCH PRN IVF 06/24/17 12:30 (NS Flush) 2 ml UNSCH PRN IV FLUSH 06/24/17 17:30 06/28/17 20:29 (Tylenol) 650 mg Q6H PRN PO 06/24/17 18:00 (Ativan Inj) 1 mg Q3H PRN IV PUSH 06/24/17 18:00 06/28/17 21:38 (Zofran Inj) 4 mg Q6H PRN IV PUSH 06/24/17 21:00 (Duoneb Neb) 1 ampule Q2HR NEB PRN INH 06/24/17 18:00 06/29/17 10:21 (Heparin Inj) 5,000 units Q12H SQ 06/24/17 18:00 06/29/17 05:49 Miscellaneous Information 1 Q361D XX 06/24/17 17:30 06/24/17 17:30 (Chlorhexidine 2% Cloth) 3 pack Taper DAILY@04 TOP 06/25/17 04:00 06/21/18 03:59 06/25/17 04:00 (Chlorhexidine 2% Cloth) 3 pack UNSCH PRN TOP 06/24/17 17:30 (Yareli-Colace) 1 tab BID PO 06/24/17 21:00 06/29/17 09:12 (Milk Of Magnesia Liq) 30 ml Q12H PRN PO 06/24/17 18:00 (Senokot) 17.2 mg Q12H PRN PO 06/24/17 18:00 (Dulcolax Supp) 10 mg DAILY PRN RECTAL 06/24/17 18:00 (Lactulose Liq) 30 ml DAILY PRN PO 06/24/17 17:30 (D50w (Vial) Inj) 50 ml UNSCH PRN IV 06/24/17 17:30 (Glucagon Inj) 1 mg UNSCH PRN OTHER 06/24/17 17:30 (SoluMEDROL INJ) 40 mg Q12HR IV PUSH 06/24/17 18:00 06/29/17 09:12 (Norvasc) 10 mg HS PO 06/24/17 21:00 06/28/17 20:28 (Buspar) 10 mg BID PO 06/24/17 21:00 06/29/17 09:12 (Vasotec) 20 mg BID PO 06/24/17 21:00 06/29/17 09:13 (Hytrin) 5 mg HS PO 06/24/17 21:00 06/28/17 20:28 (NovoLOG SUPPLEMENTAL SCALE) 1 Q4HR SQ 06/26/17 00:00 06/29/17 12:15 (Protonix) 40 mg DAILY PO 06/27/17 09:00 06/29/17 09:12 (Levemir Inj) 5 units Q12HR SQ 06/27/17 21:00 06/29/17 09:12 (Lopressor) 50 mg BID PO 06/28/17 21:00 06/29/17 09:13 (Catapres) 0.1 mg Q6H PRN PO 06/28/17 16:15 (Apresoline Inj) 20 mg Q4H PRN IV PUSH 06/28/17 16:15 06/28/17 16:26 (Cardura) 4 mg HS PO 06/29/17 21:00 A/P Problem List: (1) Tobacco abuse ICD Code: Z72.0 - Tobacco use (2) Lung mass ICD Code: R91.8 - Other nonspecific abnormal finding of lung field (3) Lymphadenopathy ICD Code: R59.1 - Generalized enlarged lymph nodes (4) Anxiety ICD Code: F41.9 - Anxiety disorder, unspecified (5) Adrenal mass, left ICD Code: E27.9 - Disorder of adrenal gland, unspecified (6) BPH (benign prostatic hyperplasia) ICD Code: N40.0 - Benign prostatic hyperplasia without lower urinary tract symptoms (7) Hepatitis C ICD Code: B19.20 - Unspecified viral hepatitis C without hepatic coma (8) Diabetes ICD Code: E11.9 - Type 2 diabetes mellitus without complications (9) COPD exacerbation ICD Code: J44.1 - Chronic obstructive pulmonary disease with (acute) exacerbation Status: Acute Assessment and Plan 73-year-old male with COPD and lung mass suspicious for malignancy admitted with worsening respiratory failure. COPD exacerbation Acute respiratory insufficiency-resolved Tobacco abuse Right upper lobe lung mass 1.8 cm Lymphadenopathy-1.7 precarinal lymph node Continue supplemental oxygen to keep sats greater than 92%. - Treated with Solu-Medrol - Pulmonology consulted, appreciate recommendations. Patient to have PFT with bronchodilator. Duo nebs every 6 hours scheduled, every 2 hours when necessary - Continue Zithromax by mouth. 06/29 will discontinue IV Solu-Medrol and start on oral prednisone taper. Anxiety disorder Alcohol use Patient describes 2 glasses of wine/or 2 glasses of beer daily Monitor for signs of alcohol withdrawal Ativan 1 mg every 3 hours when necessary for agitation Continue BuSpar 10 mg twice a day (home medication) Hypertension Sinus tachycardia 06/24 Patient received Cardizem and metoprolol in ED 06/24 EKG-sinus tachycardia, possible anterior [place] Cardiac enzymes unremarkable Continue metoprolol 25 mg twice a day, Norvasc 10 mg by mouth at bedtime, enalapril 20 mg twice a day-patient's antihypertensive home medications 06/28 continue metoprolol and lisinopril. Increase dose of metoprolol to 50 minutes by mouth twice a day. If there is no improvement I will start the patient on Cardura at bedtime. Continue hydralazine and clonidine when necessary. 06/29 blood pressure still severely elevated with a systolic blood pressure in the 160s. Increase metoprolol to 75 mg by mouth twice a day. Patient started on 06/28 on Cardura 2 mg at bedtime, I will increase the dose to 4 mg at bedtime. Left Adrenal mass 2.6 cm BPH Outpatient follow-up advised Continue terazosin 5 mg by mouth at bedtime patient's home medication Hepatitis C Monitor CBC Obtain cultures if clinically indicated, patient currently afebrile WBC count within normal limits Empirically begin Zosyn and azithromycin Diabetes mellitus type 2 -- SSI with Accu-Cheks Much improved blood sugars today. Continue insulin Levemir 5 units subcutaneous every 12 hours and SSI with insulin NovoLog. GI prophylaxis: PPI. Stool softener PRN constipation. DVT PPx: Heparin Discharge Planning I will discharge once blood pressure improved. Bhargav Braden MD Jun 29, 2017 14:04
[2017-06-29] MEDS ORDERED: PILL SPLITTER OTHER PRN (15:30)
[2017-06-29] MEDS: LORazepam 2 MG/ML VIAL IV PUSH PRN (18:16)
--- NOTE | 2017-06-29 20:43 | HHI.PR ---
Subjective Remarks Seen and Examined. Pt with a H/O Adenocarcinoma of the Right lung has been scheduled for a Lobectomy. Now admitted for Acute exacerbation of COPD but is better on Antibiotics and steroids. On O2 2 L.Has home O2 HTN to be controlled. Objective Vital Signs Date Time Temp Pulse Resp B/P (MAP) Pulse Ox O2 Delivery O2 Flow Rate FiO2 06/29/17 17:28 99 06/29/17 15:58 98.1 90 18 155/92 (113) 96 06/29/17 12:07 98.0 78 20 166/93 (117) 95 06/29/17 10:22 95 Nasal Cannula 2.00 06/29/17 08:19 98.2 91 20 164/109 (127) 96 06/29/17 08:00 91 Nasal Cannula 2.00 06/29/17 08:00 86 06/29/17 04:00 98.1 84 22 152/80 (104) 93 06/29/17 00:00 98.7 105 25 165/93 (117) 98 06/28/17 21:15 95 Nasal Cannula 2.00 I/O 06/28/17 06/28/17 06/28/17 06/29/17 06/29/17 06/29/17 07:00 15:00 23:00 07:00 15:00 23:00 Intake Total 720 ml 720 ml 480 ml 220 ml 100 ml Output Total 450 ml Balance 720 ml 720 ml 480 ml -230 ml 100 ml Intake Oral 720 ml 720 ml 480 ml 220 ml 100 ml Output Urine Total 450 ml # Voids 3 3 2 3 # Bowel Movements 3 1 0 0 Result Diagram: 06/29/1771406/29/17714 Objective Remarks GENERAL: The patient is alert. VITAL SIGNS: Temperature 99, pulse 90, respirations 20, blood pressure 112/60. Oxygen saturation 97% on 3 liters oxygen via nasal cannula. HEENT: Exam unremarkable. Eyes without icterus. NECK: Without adenopathy or thyroid enlargement. Central trachea. CHEST: Few scattered rhonchi bilaterally.Occ Crackles on right CARDIAC: PMI not appreciated. S1-S2 audible. No murmur or rub. ABDOMEN: Obese, lax. Bowel sounds audible. EXTREMITIES: No clubbing, cyanosis or edema. SKIN: Normal. No lymphadenopathy. LABORATORY DATA CT scan of the chest with a 1.8 cm mass right upper lung and found to be [place]. . A 1.7 cm lymph node in the precarinal area is noted as well. A 2.6 cm left adrenal mass as well is seen. The patient's white count is 6.4, hemoglobin 13, hematocrit 40, platelets 252,000. Sodium 136, potassium 3.9, BUN 21, creatinine 1.1. Assessment and Plan Assessment and Plan IMPRESSION 1. COPD exacerbation. 2. Lung mass malignancy suspect. 3. Hypertension. 4. Diabetes mellitus. 5. Mood disorder. Plan : 1. BMP 2. Nebs qid , duoneb 3. O2 at 2 l. 4. Cont Zithromax PO. 5.Taper prednisone 10 mg daily 6. Will need to see thoracic surgery this week after PFT's Done Brandi Thomas MD Jun 29, 2017 20:43
[2017-06-29] MEDS ORDERED: DOXAZOSIN MESYLATE 2 MG TAB PO SCH (21:00)
[2017-06-29] MEDS: TERAZOSIN HCL 5 MG CAP PO SCH (21:04)
[2017-06-30] VITALS (10 sets, daily range): BP systolic 154–175; BP diastolic 88–106; PULSE 74–108; RESP 16–24; TEMP 97.2–98; O2SAT 93–99
[2017-06-30] MEDS: INSULIN ASPART SUPPLEMENTAL SCALE SQ SCH ×6 (00:29→22:10)
[2017-06-30] MEDS: RESP: ALBUTEROL 2.5 MG/IPRATROPIUM 0.5 MG NEB (PRN) INH ×4 (04:29→21:18)
[2017-06-30] MEDS: HEPARIN SODIUM - SQ 10,000 UNITS/ML VIAL SQ SCH ×2 (04:45→15:59)
[2017-06-30] MEDS: METOPROLOL TARTRATE 50 MG TAB PO SCH ×2 (09:01→21:39)
[2017-06-30] MEDS: DOCUSATE SODIUM 50 MG/SENNA 8.6 MG TAB PO SCH ×2 (09:01→21:39)
[2017-06-30] MEDS: PANTOPRAZOLE SOD 40 MG DELAYED RELEASE TAB PO SCH (09:01)
[2017-06-30] MEDS: busPIRone HCL 10 MG TAB PO SCH ×2 (09:01→21:39)
[2017-06-30] MEDS: methylPREDNISolone SOD SUCC 40 MG/1 ML VIAL IV PUSH SCH (09:02)
[2017-06-30] MEDS: ENALAPRIL MALEATE 10 MG TAB PO SCH ×2 (09:02→21:39)
[2017-06-30] MEDS: INSULIN DETEMIR 100 UNITS/ML VIAL SQ SCH ×2 (09:08→22:10)
[2017-06-30] MEDS ORDERED: METOPROLOL TARTRATE 25 MG TAB PO ONE (12:00)
[2017-06-30] MEDS: predniSONE 20 MG TAB PO SCH ×2 (12:26→21:39)
--- NOTE | 2017-06-30 18:49 | HHI.PR ---
Subjective Remarks bp elevated breathing much improved denies fevers or chills cough much better Objective Vitals Vital Signs Date Time Temp Pulse Resp B/P (MAP) Pulse Ox O2 Delivery O2 Flow Rate FiO2 06/30/17 16:07 97.4 77 22 171/105 (127) 99 06/30/17 11:57 97.4 92 18 175/102 (126) 98 06/30/17 10:05 93 Nasal Cannula 2.00 06/30/17 09:21 108 06/30/17 08:53 98.0 87 16 162/106 (124) 97 06/30/17 07:42 97 Nasal Cannula 2.00 06/30/17 04:29 95 Nasal Cannula 2.00 06/30/17 04:00 97.2 79 20 154/90 (111) 96 06/30/17 00:00 97.7 77 24 160/88 (112) 96 06/29/17 22:02 95 Nasal Cannula 2.00 06/29/17 20:00 90 06/29/17 20:00 Nasal Cannula 2.00 06/29/17 20:00 98.3 85 24 180/113 (135) 95 190/110 (136) I/O 06/29/17 06/29/17 06/29/17 06/30/17 06/30/17 06/30/17 07:00 15:00 23:00 07:00 15:00 23:00 Intake Total 220 ml 100 ml 480 ml 240 ml 660 ml Output Total 450 ml 150 ml Balance -230 ml 100 ml 330 ml 240 ml 660 ml Intake Oral 220 ml 100 ml 480 ml 240 ml 660 ml Output Urine Total 450 ml 150 ml # Voids 3 1 # Bowel Movements 0 0 0 Result Diagram: 06/29/1715 06/29/17 0715 Imaging Last Impressions Chest X-Ray 06/25/17 0600 Signed Impressions: Service Date/Time: Sunday, June 25, 2017 06:00 - CONCLUSION: No acute disease. Maximilian Lira MD CT Angiography 06/24/17 1229 Signed Impressions: Service Date/Time: Saturday, June 24, 2017 13:46 - CONCLUSION: 1. No evidence of pulmonary embolism or acute cardiopulmonary process. 2. 1.8 cm spiculated mass right upper lobe characteristic for malignancy. 3. 1.7 cm precarinal lymph node which may represent malignant lymphadenopathy. 4. 2.6 cm left adrenal gland mass Hiram Eric MD Objective Remarks AAOx3 standing on side of the bed diffuse BL expiratory wheezing on lung exam. No rhonchi auscultated. S1S2 + RRR, no MRG abdomen soft, nt, nd Medications and IVs Current Medications Medications (Trade) Dose Ordered Sig/Cory Route Start Time Stop Time Status Last Admin (NS Flush) 2 ml UNSCH PRN IVF 06/24/17 12:30 (NS Flush) 2 ml UNSCH PRN IV FLUSH 06/24/17 17:30 06/28/17 20:29 (Tylenol) 650 mg Q6H PRN PO 06/24/17 18:00 (Ativan Inj) 1 mg Q3H PRN IV PUSH 06/24/17 18:00 06/30/17 22:09 (Zofran Inj) 4 mg Q6H PRN IV PUSH 06/24/17 21:00 (Duoneb Neb) 1 ampule Q2HR NEB PRN INH 06/24/17 18:00 06/30/17 21:18 (Heparin Inj) 5,000 units Q12H SQ 06/24/17 18:00 06/30/17 15:59 Miscellaneous Information 1 Q361D XX 06/24/17 17:30 06/24/17 17:30 (Chlorhexidine 2% Cloth) Taper DAILY@04 TOP 06/25/17 04:00 06/21/18 03:59 06/25/17 04:00 (Chlorhexidine 2% Cloth) 3 pack UNSCH PRN TOP 06/24/17 17:30 (Yareli-Colace) 1 tab BID PO 06/24/17 21:00 06/30/17 21:39 (Milk Of Magnesia Liq) 30 ml Q12H PRN PO 06/24/17 18:00 (Senokot) 17.2 mg Q12H PRN PO 06/24/17 18:00 (Dulcolax Supp) 10 mg DAILY PRN RECTAL 06/24/17 18:00 (Lactulose Liq) 30 ml DAILY PRN PO 06/24/17 17:30 (D50w (Vial) Inj) 50 ml UNSCH PRN IV 06/24/17 17:30 (Glucagon Inj) 1 mg UNSCH PRN OTHER 06/24/17 17:30 (Norvasc) 10 mg HS PO 06/24/17 21:00 06/30/17 21:39 (Buspar) 10 mg BID PO 06/24/17 21:00 06/30/17 21:39 (Vasotec) 20 mg BID PO 06/24/17 21:00 06/30/17 21:39 (Hytrin) 5 mg HS PO 06/24/17 21:00 06/30/17 21:39 (NovoLOG SUPPLEMENTAL SCALE) 1 Q4HR SQ 06/26/17 00:00 07/01/17 00:41 (Protonix) 40 mg DAILY PO 06/27/17 09:00 06/30/17 09:01 (Levemir Inj) 5 units Q12HR SQ 06/27/17 21:00 06/30/17 22:10 (Catapres) 0.1 mg Q6H PRN PO 06/28/17 16:15 07/01/17 00:31 (Apresoline Inj) 20 mg Q4H PRN IV PUSH 06/28/17 16:15 06/28/17 16:26 (Pill Splitter) 1 ea UNSCH PRN OTHER 06/29/17 15:30 (Lopressor) 100 mg BID PO 06/30/17 21:00 06/30/17 21:39 (Deltasone) 20 mg BID PO 06/30/17 11:45 06/30/17 21:39 (Cardura) 6 mg HS PO 06/30/17 21:00 06/30/17 21:39 A/P Problem List: (1) Tobacco abuse ICD Code: Z72.0 - Tobacco use (2) Lung mass ICD Code: R91.8 - Other nonspecific abnormal finding of lung field (3) Lymphadenopathy ICD Code: R59.1 - Generalized enlarged lymph nodes (4) Anxiety ICD Code: F41.9 - Anxiety disorder, unspecified (5) Adrenal mass, left ICD Code: E27.9 - Disorder of adrenal gland, unspecified (6) BPH (benign prostatic hyperplasia) ICD Code: N40.0 - Benign prostatic hyperplasia without lower urinary tract symptoms (7) Hepatitis C ICD Code: B19.20 - Unspecified viral hepatitis C without hepatic coma (8) Diabetes ICD Code: E11.9 - Type 2 diabetes mellitus without complications (9) COPD exacerbation ICD Code: J44.1 - Chronic obstructive pulmonary disease with (acute) exacerbation Status: Acute Assessment and Plan 73-year-old male with COPD and lung mass suspicious for malignancy admitted with worsening respiratory failure. COPD exacerbation Acute respiratory insufficiency-resolved Tobacco abuse Right upper lobe lung mass 1.8 cm Lymphadenopathy-1.7 precarinal lymph node Continue supplemental oxygen to keep sats greater than 92%. - Treated with Solu-Medrol - Pulmonology consulted, appreciate recommendations. Patient to have PFT with bronchodilator. Duo nebs every 6 hours scheduled, every 2 hours when necessary - Continue Zithromax by mouth. 06/29 will discontinue IV Solu-Medrol and start on oral prednisone taper. Anxiety disorder Alcohol use Patient describes 2 glasses of wine/or 2 glasses of beer daily Monitor for signs of alcohol withdrawal Ativan 1 mg every 3 hours when necessary for agitation Continue BuSpar 10 mg twice a day (home medication) Hypertension Sinus tachycardia 06/24 Patient received Cardizem and metoprolol in ED 06/24 EKG-sinus tachycardia, possible anterior [place] Cardiac enzymes unremarkable Continue metoprolol 25 mg twice a day, Norvasc 10 mg by mouth at bedtime, enalapril 20 mg twice a day-patient's antihypertensive home medications 06/28 continue metoprolol and lisinopril. Increase dose of metoprolol to 50 minutes by mouth twice a day. If there is no improvement I will start the patient on Cardura at bedtime. Continue hydralazine and clonidine when necessary. 06/29 blood pressure still severely elevated with a systolic blood pressure in the 160s. Increase metoprolol to 75 mg by mouth twice a day. Patient started on 06/28 on Cardura 2 mg at bedtime, I will increase the dose to 4 mg at bedtime. 06/30 BP still uncontrolled and very elevated. Increase metoprolol to 100 mg po BID and Cardura to 6 mg po at bedtime. Left Adrenal mass 2.6 cm BPH Outpatient follow-up advised Continue terazosin 5 mg by mouth at bedtime patient's home medication Hepatitis C Monitor CBC Obtain cultures if clinically indicated, patient currently afebrile WBC count within normal limits Empirically begin Zosyn and azithromycin Diabetes mellitus type 2 -- SSI with Accu-Cheks Much improved blood sugars today. Continue insulin Levemir 5 units subcutaneous every 12 hours and SSI with insulin NovoLog. GI prophylaxis: PPI. Stool softener PRN constipation. DVT PPx: Heparin Discharge Planning I will discharge once blood pressure improved. Bhargav Braden MD Jun 30, 2017 18:49
[2017-06-30] MEDS ORDERED: DOXAZOSIN MESYLATE 2 MG TAB PO SCH (21:00)
[2017-06-30] MEDS: TERAZOSIN HCL 5 MG CAP PO SCH (21:39)
[2017-06-30] MEDS: LORazepam 2 MG/ML VIAL IV PUSH PRN (22:09)
[2017-07-01] VITALS: BP 173/100; PULSE 71; RESP 16; TEMP 98.1; O2SAT 98
[2017-07-01] MEDS: INSULIN ASPART SUPPLEMENTAL SCALE SQ SCH ×4 (00:41→12:14)
[2017-07-01 04:00] VITALS: BP 111/83; PULSE 70; RESP 16; TEMP 98.4; O2SAT 98
[2017-07-01] MEDS: CHLORHEXIDINE GLUCONATE 2 % 1 PACK (2 CLOTHS) TOP SCH (04:00)
[2017-07-01] MEDS: HEPARIN SODIUM - SQ 10,000 UNITS/ML VIAL SQ SCH (06:34)
[2017-07-01 08:00] VITALS: BP 165/96; PULSE 76; RESP 22; TEMP 97; O2SAT 95
[2017-07-01] MEDS: DOCUSATE SODIUM 50 MG/SENNA 8.6 MG TAB PO SCH (09:00)
[2017-07-01] MEDS: RESP: ALBUTEROL 2.5 MG/IPRATROPIUM 0.5 MG NEB (PRN) INH (09:46)
[2017-07-01 09:48] VITALS: O2SAT 96
[2017-07-01] MEDS: predniSONE 20 MG TAB PO SCH (10:26)
[2017-07-01] MEDS: busPIRone HCL 10 MG TAB PO SCH (10:26)
[2017-07-01] MEDS: METOPROLOL TARTRATE 50 MG TAB PO SCH (10:27)
[2017-07-01] MEDS: PANTOPRAZOLE SOD 40 MG DELAYED RELEASE TAB PO SCH (10:27)
[2017-07-01] MEDS: ENALAPRIL MALEATE 10 MG TAB PO SCH (10:27)
[2017-07-01] MEDS: INSULIN DETEMIR 100 UNITS/ML VIAL SQ SCH (10:28)
[2017-07-01 12:00] VITALS: BP 153/92; PULSE 78; RESP 21; TEMP 96.5; O2SAT 95
[2017-07-01] MEDS ORDERED: CARD2TAB PO (13:35)
[2017-07-01] MEDS ORDERED: METO-309 PO (13:35)
[2017-07-01] MEDS ORDERED: NOVOLOGP2 SQ (13:36)
[2017-07-01] MEDS ORDERED: PRED20 PO (13:36)
--- NOTE | 2017-07-01 13:37 | HHI.DCPOC ---
Discharge Care Plan Diagnosis: (1) COPD exacerbation (2) Anxiety (3) Diabetes (4) Lymphadenopathy (5) Tobacco abuse (6) Lung mass (7) Hepatitis C (8) BPH (benign prostatic hyperplasia) (9) Adrenal mass, left Goals to Promote Your Health * To prevent worsening of your condition and complications * To maintain your health at the optimal level Directions to Meet Your Goals Take your medications as prescribed Follow your dietary instruction Follow activity as directed Keep your appointments as scheduled Take your immunizations and boosters as scheduled If your symptoms worsen call your PCP, if no PCP go to Urgent Care Center or Emergency Room Smoking is Dangerous to Your Health. Avoid second hand smoke Call the 24-hour hour crisis hotline for domestic abuse at Bhargav Braden MD Jul 01, 2017 13:37
--- NOTE | 2017-07-01 13:48 | HHI.DS ---
Discharge Summary Admission Date Jun 24, 2017 at 16:41 Discharge Date: Jul 01, 2017 Admitting Diagnosis COPD exacerbation. (1) Tobacco abuse ICD Code: Z72.0 - Tobacco use (2) Lung mass ICD Code: R91.8 - Other nonspecific abnormal finding of lung field (3) Lymphadenopathy ICD Code: R59.1 - Generalized enlarged lymph nodes (4) Anxiety ICD Code: F41.9 - Anxiety disorder, unspecified (5) Adrenal mass, left ICD Code: E27.9 - Disorder of adrenal gland, unspecified (6) BPH (benign prostatic hyperplasia) ICD Code: N40.0 - Benign prostatic hyperplasia without lower urinary tract symptoms (7) Hepatitis C ICD Code: B19.20 - Unspecified viral hepatitis C without hepatic coma (8) Diabetes ICD Code: E11.9 - Type 2 diabetes mellitus without complications (9) COPD exacerbation ICD Code: J44.1 - Chronic obstructive pulmonary disease with (acute) exacerbation Status: Acute Brief History - From Admission This is a 72-year-old male that presented to the ED with dyspnea and a cough .The cough was described as whitish sputum, the patient reports no fevers no history of recent infections . The patient is noted to have a right upper lobe lobe lung mass that was to be biopsied or 04/11/17 via IR, but due to the location biopsy retrieval was unsuccessful. The patient was subsequently scheduled for surgical biopsy/right upper lobe lung mass removal which is scheduled in the near future. The patient reports that his symptoms had began approximately 24 hours ago . Denies any fever denies any sputum production denies any abdominal pain or nausea vomiting. Denies any chest pain. The patient presented in sinus tachycardia with a heart rate of 135, and tachypnea initially respiratory rate in the 50s the patient received DuoNeb treatments in the ED, and the heart rate became subsequently more elevated. The patient then received Cardizem, and metoprolol current heart rate upon presentation was 121. Imaging studies performed CTA pulmonary negative with noted right upper lobe lung mass, as well as a left adrenal mass, and suspicious precarinal lymphadenopathy. The patient's respiratory rate trends in the mid 30s on BiPAP ,the patient states he is comfortable and breathing easier now post treatment. Critical care medicine is consulted for management. History PFSH Past Medical History Arthritis: Yes Autoimmune Disease: No Blood Disorders: No Anxiety: Yes Depression: Yes Heart Rhythm Problems: No Cancer: No Cardiovascular Problems: Yes High Cholesterol: Yes Chemotherapy: No Chest Pain: No Congestive Heart Failure: No Cerebrovascular Accident: No Diabetes: Yes Diminished Hearing: No Endocrine: Yes Gastrointestinal Disorders: Yes GERD: Yes Glaucoma: No Genitourinary: Yes Hepatitis: Yes (C) Hiatal Hernia: No Hypertension: Yes Immune Disorder: No Kidney Stones: Yes Musculoskeletal: Yes Neurologic: Yes Psychiatric: Yes Reproductive: No Respiratory: No Immunizations Current: Yes Migraines: No Radiation Therapy: No Renal Failure: No Seizures: No Thyroid Disease: No Ulcer: No Past Surgical History Abdominal Surgery: Yes Cardiac Surgery: No Ear Surgery: No Endocrine Surgery: No Eye Surgery: No Genitourinary Surgery: No Gynecologic Surgery: No Oral Surgery: No Pacemaker: No Thoracic Surgery: No Other Surgery: Yes Social History Alcohol Use: Yes (WINE DAILY) Tobacco Use: No (QUIT 10/26) Substance Use: No Allergies-Medications Allergies-Medications (Allergen,Severity, Reaction): Coded Allergies: diphenhydramine (Unverified Allergy, Intermediate, Rash, 05/29/17) hydroxyzine (Unverified Allergy, Intermediate, Rash, 05/29/17) Reported Meds & Prescriptions Reported Meds & Active Scripts Active Prednisone 20 Mg Tab 60 Mg PO DAILY 5 Days Reported Pantoprazole (Pantoprazole Sodium) 40 Mg Tab 40 Mg PO DAILY Metformin (Metformin HCl) 1,000 Mg Tab 1,000 Mg PO BIDPC With meals Buspirone (Buspirone HCl) 10 Mg Tab 10 Mg PO BID Metoprolol Tartrate 25 Mg Tab 25 Mg PO BID Terazosin (Terazosin HCl) 5 Mg Cap 5 Mg PO HS Glipizide 10 Mg Tab 10 Mg PO BIDAC Take 30 minutes before a meal Enalapril (Enalapril Maleate) 20 Mg Tab 20 Mg PO BID Norvasc (Amlodipine Besylate) 10 Mg Tab 10 Mg PO HS ROS Review of Systems Except as stated in HPI: all other systems reviewed are Neg CBC/BMP: 06/29/17 0715 06/29/17 0715 Significant Findings Laboratory Tests Test 06/29/17 07:15 Red Blood Count 4.37 MIL/MM3 (4.50-5.90) Neutrophils (%) (Auto) 73.9 % (16.0-70.0) Monocytes (%) (Auto) 10.1 % (0.0-8.0) Blood Urea Nitrogen 41 MG/DL (7-18) Random Glucose 168 MG/DL (74-106) Alkaline Phosphatase 41 U/L (45-117) Aspartate Amino Transf (AST/SGOT) 40 U/L (15-37) Alanine Aminotransferase (ALT/SGPT) 87 U/L (12-78) Estimat Glomerular Filtration Rate 82 ML/MIN (>89) Imaging Last Impressions Chest X-Ray 06/25/17 0600 Signed Impressions: Service Date/Time: Sunday, June 25, 2017 06:00 - CONCLUSION: No acute disease. Maximilian Lira MD CT Angiography 06/24/17 1229 Signed Impressions: Service Date/Time: Saturday, June 24, 2017 13:46 - CONCLUSION: 1. No evidence of pulmonary embolism or acute cardiopulmonary process. 2. 1.8 cm spiculated mass right upper lobe characteristic for malignancy. 3. 1.7 cm precarinal lymph node which may represent malignant lymphadenopathy. 4. 2.6 cm left adrenal gland mass Hiram Eric MD PE at Discharge AAOx3 standing on side of the bed diffuse BL expiratory wheezing on lung exam. No rhonchi auscultated. S1S2 + RRR, no MRG abdomen soft, nt, nd Pt update on day of discharge The patient denies chest pain or shortness of breath. Blood pressure is better controlled with a systolic blood pressure in the 150s. Denies fevers or chills , denies cough. Patient states that he has being following up with a thoracic surgeon - Dr. Semaj Diamond for lung mass biopsy. He was advised to follow- up with him as soon as discharge. The patient also stated he was not thinking on undergoing any procedure before his girlfriend gets better. Pt Condition on Discharge: Stable Discharge Disposition: Discharge Home Discharge Time: > 30 minutes Discharge Instructions DIET: Follow Instructions for: Diabetic Diet Activities you can perform: Regular-No Restrictions Activities to Avoid: Prolonged Standing, Strenuous Activity Follow up Referrals: Appointment for Follow Up - 1 Week with Thoracic surgery PCP Follow-up - 2 Weeks Pulmonology - 1 Week New Medications: Prednisone (Prednisone) 20 Mg Tab 20 MG PO DIRECTED for Inflammation, #11 TAB 0 Refills 40 MG twice a day x 3 days, then 20 MG daily x 3 days, then 10 MG daily x 3 days Doxazosin (Cardura) 2 Mg Tab 6 MG PO HS for Blood Pressure Management, #30 TAB Metoprolol Tartrate (Lopressor) 50 Mg Tab 100 MG PO BID for Blood Pressure Management, #60 TAB Continued Medications: Amlodipine (Norvasc) 10 Mg Tab 10 MG PO HS for Blood Pressure Management, #30 TAB 0 Refills Buspirone (Buspirone) 10 Mg Tab 10 MG PO BID for Anxiety, TAB 0 Refills Enalapril (Enalapril) 20 Mg Tab 20 MG PO BID, #30 TAB 0 Refills Glipizide (Glipizide) 10 Mg Tab 10 MG PO BIDAC for Blood Sugar Management, #60 TAB 0 Refills Take 30 minutes before a meal Metformin (Metformin) 1,000 Mg Tab 1000 MG PO BIDPC for Blood Sugar Management, #60 TAB 0 Refills With meals Pantoprazole (Pantoprazole) 40 Mg Tab 40 MG PO DAILY for Reflux, #30 TAB 0 Refills Terazosin (Terazosin) 5 Mg Cap 5 MG PO HS, #30 CAP 0 Refills Discontinued Medications: Metoprolol Tartrate (Metoprolol Tartrate) 25 Mg Tab 25 MG PO BID, #60 TAB 0 Refills Prednisone (Prednisone) 20 Mg Tab 60 MG PO DAILY for 5 Days, TAB 0 Refills Bhargav Braden MD Jul 01, 2017 13:47
--- NOTE | 2017-07-02 11:09 | RSPPFT ---
DATE OF PROCEDURE: 06/28/17 COMMENTS: Spirometry with FVC of 1.3, FEV1 of 0.7, FEV1/FVC ratio at 55%. A positive response to acutely inhaled bronchodilator noted. IMPRESSION: 1. Severe airways obstruction. 2. Positive and significant response to acutely inhaled bronchodilator.
--- NOTE | 2017-07-06 08:42 | RSPPFT ---
DATE OF PROCEDURE: 07/01/17 COMMENTS: Spirometry with FVC of 1.3, FEV1 of 0.7, FEV1/FVC ratio at 55%. A positive and significant response to inhaled bronchodilator. IMPRESSION: 1. Severe airways obstruction. 2. Positive and significant response to acutely inhaled bronchodilator.
== END 2017-07-01 14:25 | disposition home or self-care (01) | DRG 191 ==
LOC: PHED 12:19 → PHEDA 16:41 → PHICU 19:53 → PH5A 06-26 16:30
PROVIDERS: ADMIT Anesthesiology; ATTEND Hospitalist
PROC: 5A09357 Assistance with Respiratory Ventilation, Less than 24 Consecutive Hours, Continuous Positive Airway Pressure (ICD-10-PCS; principal; 2017-06-24)
DX: J44.1 Chronic obstructive pulmonary disease with (acute) exacerbation (principal); E87.1 Hypo-osmolality and hyponatremia; E27.8 Other specified disorders of adrenal gland; I10 Essential (primary) hypertension; E11.9 Type 2 diabetes mellitus without complications; F41.9 Anxiety disorder, unspecified; N40.0 Benign prostatic hyperplasia without lower urinary tract symptoms; K21.9 Gastro-esophageal reflux disease without esophagitis; B19.20 Unspecified viral hepatitis C without hepatic coma; R00.0 Tachycardia, unspecified; R59.1 Generalized enlarged lymph nodes; E27.9 Disorder of adrenal gland, unspecified; R91.8 Other nonspecific abnormal finding of lung field; Z79.84 Long term (current) use of oral hypoglycemic drugs; Z87.891 Personal history of nicotine dependence; Z88.8 Allergy status to other drugs, medicaments and biological substances
CPT/HCPCS: 36600; 71010; 71275; 80048; 80053; 82550; 82552; 82805; 82948; 83735; 84100; 84484; 85025; 85027; 85610; 85730; 87641; 93005; 94002; 94003; 94060; 94620; 94640; 94664; 96374; 96375; 96376; C9113; J0360; J0456; J1644; J1815; J2060; J2543; J2920; J3475; J7030; J7050; J7512; Q9967